=== PATIENT | male | born 1965 | race Caucasian/White ===

== ENCOUNTER 2021-02-19 11:51 | Emergency (ER) | payer BC, SELFPAY ==
[2021-02-19 11:52] VITALS: BP 147/79; PULSE 93; RESP 18; TEMP 36.7; O2SAT 99; BMI 55.2
[2021-02-19 13:00] VITALS: BP 147/79; PULSE 93; RESP 18; TEMP 36.7; O2SAT 99; BMI 55.4
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
[2021-02-19 14:05] VITALS: BP 147/79; PULSE 93; RESP 18; TEMP 36.7; O2SAT 99
== END 2021-02-19 14:20 | disposition home or self-care (01) ==
PROVIDERS: Emergency Provider Nurse Practitioner; PCP Family Medicine
DX: M54.42 Lumbago with sciatica, left side (principal)
CPT/HCPCS: 96372; 99202; G0463

== ENCOUNTER → 2021-03-03 10:59 | Outpatient (CLI) | payer BC, SELFPAY ==
--- NOTE | 2021-03-03 11:03 | XR_ITS ---
PROCEDURE: XR LUMBAR SPINE MIN 4V CLINICAL INDICATION: Dorsalgia, unspecified COMPARISON: No exams were available for comparison FINDINGS: There is normal alignment. No acute fracture or dislocation is evident. Mild degenerative changes are present with small anterior osteophytes at L2, L3, and L4. The disc spaces are well preserved. There is mild sclerosis of the left SI joint. On the AP view of the lumbar spine there are numerous faintly rounded areas of calcification in the right upper quadrant consistent with cholelithiasis.. IMPRESSION: Mild degenerative changes lumbar spine and left SI joint. Cholelithiasis Dictated by: Mario Mcgowan MD 03/03/2021 11:31 Mario Mcgowan MD in [place] 03/03/2021 11:31
== END ==
LOC: RAD 11:01
PROVIDERS: PCP Family Medicine; Visit Provider Family Medicine
DX: M54.9 Dorsalgia, unspecified (principal)
CPT/HCPCS: 72110

== ENCOUNTER → 2022-01-04 11:12 | Outpatient (CLI) | payer OTHER, SELFPAY | LOC: RT 11:16 | PROVIDERS: PCP Family Medicine; Visit Provider Family Medicine | DX: R55 Syncope and collapse (principal); I10 Essential (primary) hypertension | CPT/HCPCS: 93225; 93226 ==

== ENCOUNTER → 2022-01-06 08:02 | Outpatient (CLI) | payer OTHER, SELFPAY ==
--- NOTE | 2022-01-06 | CA_ITS ---
APPROVED REPORT EXAM: Comprehensive 2D, Doppler, and color-flow Echocardiogram Rn Sane: Gabby Berger CRT Ht: 5 ft 10 in Wt: 385lbs BSA: 2.76 BP: 147/79 mmHg Indications: Diabetes, Obesity, Peripheral Edema, Hypertension/HDD 2D Dimensions LVOT 2.01 cm (M/F) 1.5-2.5 LA Volume 65.80 mL LA Volume Index 23.80 mL/m2 (M/F) 16-34 M-Mode Dimensions RVDd 3.34 cm (0.9-2.6) LA Diam 4.15 cm (1.9-4.0) LVDd 5.07 cm (3.5-5.7) Ao Diam 3.94 cm (2.0-3.7) LVDs 3.26 cm (3.5-5.7) IVSd 0.97 cm (0.6-1.1) PWd 1.17 cm (0.6-1.1) EF (Teich) 64.90% FS 35.70% EDV (Teich) 122.10 mL ESV (Teich) 42.80 mL LV Diastology MED E' 16.90 (< 7 cm/sec) MED A' 5.80 cm/s LAT E' 15.00 (<10 cm/sec) LAT A' 4.90 cm/s Aortic Valve AO Peak GR. 15.50 mmHg Pulmonary Valve PV Peak Velocity 112.00 (50-150 cm/s) Tricuspid Valve TR P. Velocity 156.00 cm/s RAP Estimate 10.00 mmHg RVSP 19.70 mmHg Left Ventricle Left atrium is mildly enlarged, left ventricle is normal size, mild concentric left ventricular hypertrophy, estimated ejection fraction 55% with no regional wall motion abnormality, diastolic parameters are within normal range. Right Ventricle Right atrium and right ventricle are normal size and contractility. Aortic Valve Aortic valve is minimally thickened and fibrosed there is no aortic stenosis or aortic insufficiency. Mitral Valve Mitral valve grossly normal, there is trace mitral regurgitation. Tricuspid Valve Tricuspid valve grossly normal, there is trace tricuspid regurgitation, tricuspid regurgitation jet velocity is inadequate for calculation of the right ventricular systolic pressure. Pulmonic Valve Pulmonic valve is poorly visualized. Great Vessels Aortic root is normal size. Inferior vena cava is normal size with normal inspiratory collapse. Pericardium No significant pericardial effusion noted. Conclusion 1. Mildly enlarged left atrium, normal left ventricular size, mild concentric left ventricular hypertrophy, estimated ejection fraction 55% with no regional wall motion abnormality, diastolic parameters are within normal range. 2. Trace mitral and tricuspid regurgitation. 3. No significant pericardial effusion noted. 4. Inferior vena cava is normal size with normal inspiratory collapse. Electronically signed by : Juice Mcgrath MD 01/07/2022 05:39:00
--- NOTE | 2022-01-06 08:52 | US_ITS ---
FINAL REPORT CLINICAL HISTORY: RUQ ABD PAIN FINDINGS: Sonographic images of the right upper quadrant were obtained. The pancreas is partially obscured.The liver is fatty infiltrated. The portal vein is at the upper limits of normal in size at 13 mm. There are gallstones in the gallbladder. There is no evidence of biliary ductal dilatation.The common duct measures 4mm. Limited images of the right kidney are unremarkable. IMPRESSION: Cholelithiasis. Fatty infiltration of the liver. Reviewed, Interpreted and Dictated by Param Fishman III, MD Transcribed by Rene Watters Authenticated and [facility]
== END ==
PROVIDERS: PCP Family Medicine; Visit Provider Family Medicine
DX: R10.11 Right upper quadrant pain (principal); R55 Syncope and collapse; I10 Essential (primary) hypertension
CPT/HCPCS: 76705; 93306

== ENCOUNTER 2023-03-25 10:15 | Observation (INO) | payer OTHER, SELFPAY ==
[2023-03-25] VITALS (15 sets, daily range): BP systolic 102–136; BP diastolic 51–90; PULSE 86–114; RESP 16–20; TEMP 36.7; O2SAT 97–99; BMI 55.7; BMI 53.8
--- NOTE | 2023-03-25 10:30 | CT_ITS ---
FINAL REPORT TECHNIQUE: The patient was injected with IV contrast. Axial images were obtained through the chest in a PE protocol. 3-D reconstruction images were also performed. Individualized dose reduction techniques using automated exposure control or adjustment of the MA and/or KV according to patient's size were employed. CLINICAL HISTORY: dyspnea, unilateral leg swelling FINDINGS: There are multiple small mediastinal lymph nodes. The pulmonary arteries are suboptimally opacified. There are bilateral pulmonary artery filling defects, greater on the left than right. Findings are well seen on images 61-69 of series 5. There are pulmonary artery filling defects in the right lower lobe branch vessels. This is well seen on images 73-81 of series 5. There is no axillary adenopathy. The heart size is normal. There is no pericardial or pleural effusion. Limited images of the upper abdomen mild fatty infiltration of the liver. No suspicious infiltrate or nodule is identified. IMPRESSION: Multiple bilateral acute pulmonary emboli. Reviewed, Interpreted and Dictated by Meliton Lopez MD Transcribed by Rosa Maria Yousif Authenticated and . [facility]
--- NOTE | 2023-03-25 10:30 | CA_ITS ---
FINAL REPORT TECHNIQUE: Right lower extremity venous duplex was performed with augmentation and compression. CLINICAL HISTORY: RLE swelling and pain X SEVERAL DAYS,NKI COMPARISON: None FINDINGS: RIGHT LOWER EXTREMITY VENOUS DOPPLER: There is partial thrombus with limited compressibility identified in the right common femoral vein. There is occluding thrombus is seen in the superficial femoral vein, popliteal vein, and posterior tibial veins. IMPRESSION: Extensive deep venous thrombosis in the right lower extremity, from the calf veins through the superficial femoral vein. There is partial thrombosis with limited compressibility in the right common femoral vein. These results were communicated to Dr. Arias in the emergency room of [facility] by the cytotechnologist/cytology supervisor 03/25/2023. Reviewed, Interpreted and Dictated by Meliton Lopez MD Transcribed by Carmela Leija Authenticated and [facility]
--- NOTE | 2023-03-25 10:32 | ED_ITS ---
Discharge Plan Disposition Patient Disposition: Admitted Chief Complaint: PAIN Prescriptions Prescriptions: No Action metformin 1,000 mg tablet 1,000 mg PO amitriptyline 25 mg tablet 25 mg PO gabapentin 400 mg capsule 400 mg PO meloxicam 7.5 MG tablet 7.5 mg PO BID lisinopril 10 mg tablet 20 mg PO DAILY Referrals Follow up/Referrals: Michael Greer MD [Primary Care Provider] - See instructions Clinical Impressions Clinical Impression: Pulmonary embolism, Right leg swelling, Dyspnea, DVT (deep venous thrombosis), MARYJANE (acute kidney injury) Discharge ED Provider: Vanesa Arias General Adult HPI General Chief complaint: PAIN Stated complaint: right calf pain, cough, flu like symptoms Time Seen by Provider: 03/25/23 10:26 Mode of Arrival: Ambulatory Source of Information: Patient Limitations: No Limitations Description of Symptoms (Recalled from ER Triage Doc. by RN): pt to ed c/o right calf pain x2 days. pt states the pain is better when he is lying down and worse when sitting. pt states a hx of neuropathy and diabetes. pt states taking 81mg of aspirin last night. pedal pulses intact. History of Present Illness HPI narrative: Patient is a morbidly obese 58-year-old male presents today with multiple complaints including right lower extremity pain and swelling as well as shortness of breath and chest wall discomfort. No history of DVT or PE that he is aware of he has had no hemoptysis. Did state he recently recovered from an upper respiratory viral infection within the last week or 2. States that his lower extremity pain and discomfort began over the last 3 days started in his calf and has migrated proximally with associated leg swelling. Subsequently over the last 24 hours he states he has had respiratory symptoms and pain on the right lateral aspect of his chest wall. No fevers or chills he is aware of. Related Data Home Medications Medication Instructions Recorded Confirmed meloxicam 7.5 mg tablet 7.5 mg PO BID Pain 02/19/21 01/26/22 amitriptyline 25 mg tablet 25 mg PO 01/26/22 01/26/22 gabapentin 400 mg capsule 400 mg PO 01/26/22 01/26/22 lisinopril 10 mg tablet 20 mg PO DAILY Hypertension 01/26/22 01/26/22 metformin 1,000 mg tablet 1,000 mg PO 01/26/22 01/26/22 Allergies Allergy/AdvReac Type Severity Reaction Status Date / Time codeine Allergy Verified 01/26/22 09:[address] [facility] Disclaimer: The information contained in this section may have been updated after the patient was seen, as this information can be updated by other users. Social History (Updated 01/26/22 @ 13:51 by Param Gardner MD) Smoking Status: Never smoker alcohol intake: never current occupational status: other Travel in the last 8 weeks: None ROS Obtained: Yes All systems reviewed & no additional complaints except as documented Physical Exam General General appearance: alert Respiratory Respiratory exam: Present normal lung sounds bilaterally; Absent respiratory distress or wheezes Cardiovascular Cardiovascular exam: Present tachycardia (Heart rate 115) Extremities Exam Extremities exam: Present other (Extremities morbidly obese and body habitus limits my ability to assess for unilateral swelling peers to be symmetric on my assessment) Neurological Exam Neurological exam: Present alert and oriented X3 Medical Decision Making Alex Inquiry Pt receiving controlled substance: No Vital Signs: 03/25/23 10:24 03/25/23 10:30 03/25/23 11:08 Temperature 98.0 F Temperature Source Oral Pulse Rate 110 H 90 Pulse Rate [Left Radial] 114 H Respiratory Rate 20 20 18 Blood Pressure 120/73 118/71 Blood Pressure [Right Arm] 134/90 Blood Pressure Mean 88 84 Blood Pressure Mean [Right Arm] 104 02 Sat by Pulse Oximetry 99 99 98 Oxygen Delivery Method Room Air 03/25/23 11:30 03/25/23 12:00 Temperature Temperature Source Pulse Rate 95 H 87 Pulse Rate [Left Radial] Respiratory Rate 20 20 Blood Pressure 118/64 126/64 Blood Pressure [Right Arm] Blood Pressure Mean 71 82 Blood Pressure Mean [Right Arm] 02 Sat by Pulse Oximetry 99 99 Oxygen Delivery Method Lab Data Lab results reviewed: Yes I reviewed the patient's lab results. Lab Results 03/25/23 10:36: SARS-CoV-2 (PCR) Not detected, Influenza A Untype (PCR) Not de tected, Influenza Type B (PCR) Not detected 03/25/23 10:42: WBC 9.4, RBC 5.24, Hgb 16.4, Hct 47.9, MCV 91.4, MCH 31.2, MCHC 34.2, RDW 13.5, Plt Count 208, MPV 9.0, Neut % (Auto) 70.7, Lymph % (Auto) 18.1, [place] % (Auto) 9.3, Eos % (Auto) 1.4, Baso % (Auto) 0.5, Neut # (Auto) 6.6, Lymph # (Auto) 1.7, [place] # (Auto) 0.9, Eos # (Auto) 0.1, Baso # (Auto) 0.1, Sodium 138, Potassium 4.0, Chloride 107, Carbon Dioxide 19 L, Anion Gap 16.0 H, BUN 28 H, Creatinine 2.20 H, Estimated Creat Clear 39, Estimated GFR 31 L, Est GFR ( Amer) 38 L, Glucose 237 H, Calcium 8.5, Phosphorus 2.5, Magnesium 1.9, Total Bilirubin 1.3, AST 34, ALT 35, Alkaline Phosphatase 117, Total Creatine Kinase 212 H, Troponin I < 0.01, NT-Pro-B Natriuret Pep 89.3, Total Protein 7.9, Albumin 4.1, Globulin 3.8 H, Albumin/Globulin Ratio 1.1 03/25/23 10:42 03/25/23 10:42 Orders (Tests/Meds): ED MEDICATIONS Discontinued Medications Generic Name Dose Route Start Last Admin Trade Name Freq PRN Reason Stop Dose Admin Lactated Ringer's 1,000 mls @ 999 mls/hr 03/25/23 10:30 03/25/23 10:59 Lactated Ringer's 1000 Ml Bag IV 03/25/23 11:30 999 mls/hr .Q1H1M DAMASO Administration Iopamidol 75 ml 03/25/23 11:46 03/25/23 11:47 Iopamidol-370 (76%);100ml Bottle IV 03/25/23 11:47 75 ml ONCE ONE Administration Morphine Sulfate 4 mg 03/25/23 10:30 03/25/23 11:01 Morphine 4mg/Ml Syringe IV 03/25/23 10:31 4 mg ONCE ONE Administration Ondansetron HCl 4 mg 03/25/23 10:30 03/25/23 11:00 Ondansetron 4mg/2ml Vial IV 03/25/23 10:31 4 mg ONCE ONE Administration Sodium Chloride 50 ml 03/25/23 11:46 03/25/23 11:46 0.9 % Sodium Chloride 50 Ml Vial IV 03/25/23 11:47 50 ml ONCE ONE Administration Sodium Chloride 10 ml 03/25/23 11:46 03/25/23 11:47 Sodium Chloride 0.9% 10ml Syr (Rad Only) IV 03/25/23 11:47 10 ml ONCE ONE Administration ORDERS Category Date Time Status CT angio chest PE protocol Stat Cat Scan 03/25/23 10:30 Taken BNP [Brain Natriuretic Peptide] Stat Lab 03/25/23 10:42 Completed CBC w/Auto Diff [Complete Blood Count Auto Diff] Stat Lab 03/25/23 10:42 Completed CK [Creatine Kinase] Stat Lab 03/25/23 10:42 Completed CMP [Comprehensive Metabolic Panel] Stat Lab 03/25/23 10:42 Completed Magnesium Stat Lab 03/25/23 10:42 Completed Phosphorous Stat Lab 03/25/23 10:42 Completed Rapid PCR Covid and Flu A/B Stat Lab 03/25/23 10:36 Completed Trop I [Troponin I] Stat Lab 03/25/23 10:42 Completed Troponin I Q3H Lab 03/25/23 13:30 Ordered Troponin I Q3H Lab 03/25/23 16:30 Ordered CA venous doppler LE RT Stat Y 03/25/23 10:30 Completed Medical Decision Narrative: 58-year-old with above history. On highly concerned that he has a DVT and possible concomitant pulmonary embolism therefore we will get a venous duplex of the right lower extremity as well as CT pulmonary angio to evaluate for PE. Other things in the differential could be viral upper respiratory infection and more benign pathology such as myalgias or muscular cramping. Patient is tachycardic we will give IV fluids and some pain medicine I will reassess after his initial workup is complete. Patient's creatinine significantly elevated at 2.2 no labs were available in our system but we were able to obtain labs from Dr. Greer's office and his creatinine was 1.43 resulted on March 04, 2023 therefore this is an acute kidney injury. EKG performed at person interpreted shows a ventricular rate of 89 low voltage QRS this is likely secondary to patient's body habitus there is a positive flexion leads I and aVF normal axis no acute ischemic changes noted no significant right heart strain noted as well no significant conduction abnormalities is nondiagnostic from an emergency standpoint. DVT ultrasound was positive for right lower extremity DVT. CT PE was performed which I personally interpreted which shows multiple bilateral PEs no evidence of right heart strain this is consistent with radiology read as well. Overall patient has a DVT PE acute kidney injury Lovenox was administered he will need to be admitted for further evaluation and treatment. No evidence of submassive PE that would require any further endovascular intervention. Critical Care Critical Care Time Critical Care Time: Yes Attestation: On 03/25/23, the high probability of a clinically significant, sudden or life threatening deterioration of the following system(s) required my full and direct attention, intervention and personal management. The time I documented below is in addition to time spent performing reported procedures but includes the following listed in this critical care notation. Total Time Total Critical Care Time: 35
[2023-03-25 10:43] LABS: Coronavirus 19, PCR Not Detected (NotDetected); Influenza A, PCR Not Detected (NotDetected); Influenza B, PCR Not Detected (NotDetected)
--- NOTE | 2023-03-25 10:50 | PC.NURSE ---
vascular at BS
[2023-03-25] MEDS: LACTATED RINGERS 1000ML 1,000 ML 999 ML IV (10:59)
[2023-03-25] MEDS: ONDANSETRON 4MG/2ML VIAL 4 MG IV (11:00)
[2023-03-25] MEDS: MORPHINE 4MG/ML SYRINGE 4 MG IV (11:01)
[2023-03-25 11:04] LABS: Basophils # 0.1 K/mm3 (0-0.2); Basophils % 0.5 % (0.1-2.0); Eosinophils # 0.1 K/mm3 (0.0-0.4); Eosinophils % 1.4 % (0.1-12.0); Hematocrit 47.9 % (42.0-52.0); Hemoglobin 16.4 g/dL (14.1-18.0); Lymphocytes # 1.7 K/mm3 (0.7-4.5); Lymphocytes % 18.1 % (10-50); Mean Corpuscular HGB Conc 34.2 g/dL (31.8-35.4); Mean Corpuscular Hemoglobin 31.2 pg (27.0-31.2); Mean Corpuscular Volume 91.4 fl (80-94); Monocytes # 0.9 K/mm3 (0.1-1.0); Monocytes % 9.3 % (1.7-9.3); Neutrophils # 6.6 K/mm3 (1.8-7.8); Neutrophils % 70.7 % (37.0-80.0); Platelet Count 208 K/mm3 (142-424); Red Blood Count 5.24 M/mm3 (4.60-6.20); Red Cell Distribution Width 13.5 % (11.5-17.5); White Blood Count 9.4 K/mm3 (4.8-10.8)
[2023-03-25 11:08] LABS: Chloride 107 mmol/L (98-107); Sodium 138 mmol/L (136-145)
[2023-03-25 11:10] LABS: Alanine Aminotransferase 35 U/L (12-78); Aspartate Amino Transferase 34 U/L (17-59); Bilirubin,Total 1.3 mg/dl (0.2-1.3); Blood Urea Nitrogen 28 mg/dl (9-20); Creatinine Clearance Estimated 39 mL/min (50-200); Estimated Glomerular Filt Rate 31 ml/min (>60); GFR (African American) 38 ML/MIN (>60); Magnesium 1.9 mg/dl (1.6-2.3); Phosphorous 2.5 mg/dl (2.5-4.5)
[2023-03-25 11:11] LABS: Albumin Level 4.1 g/dl (3.5-5.0); Albumin/Globulin Ratio 1.1 (1.1-1.8); Alkaline Phosphatase 117 U/L (38-126); Calcium 8.5 mg/dl (8.4-10.2); Carbon Dioxide 19 mmol/L (22.0-30.0); Creatine Kinase 212 U/L (55-170); Globulin 3.8 g/dL (1.3-3.2); Glucose 237 mg/dl (74-100); Total Protein,Serum 7.9 g/dl (6.3-8.2)
[2023-03-25 11:20] LABS: NT Pro Brain Natriuretic Pep. 89.3 pg/mL (0-125)
--- NOTE | 2023-03-25 11:22 | ECG_ITS ---
APPROVED REPORT Exam: Resting ECG HR:89 bpm ECG Measurements Heart Rate 89 AXES ID 239 P 34 QRSd 77 QRS 3 QT 348 T 18 QTc 394 Conclusion SINUS RHYTHM WITH FIRST DEGREE AV BLOCK LOW QRS VOLTAGE IN PRECORDIAL LEADS [QRS DEFLECTION < 1.0 mV IN CHEST LEADS] POSSIBLE ANTERIOR MYOCARDIAL INFARCTION , PROBABLY OLD [30 ms Q WAVE IN V3/V4, OR R < 0.2 mV IN V4] POSSIBLE INFERIOR MYOCARDIAL INFARCTION , PROBABLY OLD [30 ms Q WAVE IN II/aVF] ABNORMAL ECG UNCONFIRMED REPORT Electronically signed by : Zackery Torres MD 03/25/2023 17:59:08
[2023-03-25 11:24] LABS: Troponin I < 0.01 ng/ml (0.00-0.034)
--- NOTE | 2023-03-25 11:33 | PC.NURSE ---
Pt gone to RAD via stretcher
[2023-03-25] MEDS: 0.9 % SODIUM CHLORIDE 50 ML VIAL IV (11:46)
[2023-03-25] MEDS: SODIUM CHLORIDE 0.9% 10ML SYR (RAD ONLY) 10 ML IV (11:47)
[2023-03-25] MEDS: IOPAMIDOL-370 (76%);100ML BOTTLE 75 ML IV (11:47)
--- NOTE | 2023-03-25 12:33 | PC.NURSE ---
Dr. Arias speaking with Dr. Greenwood about possible admission
--- NOTE | 2023-03-25 12:38 | PC.NURSE ---
Juliane in Care Management notified of admission to Dr. Greenwood for Dr. Greer for MARYJANE, RLE DVT, multiple PE's.
[2023-03-25] MEDS: ENOXAPARIN 100MG/ML SYRINGE 180 MG SQ ×2 (12:40→23:59)
--- NOTE | 2023-03-25 13:23 | HMH.PHAINT1 ---
Pharmacy Intervention Comments: MEDICATION RECONCILIATION COMPLETE USING LIST FROM DR WISE'S OFFICE AND EXTERNAL PHARMACY FILL HISTORY.
--- NOTE | 2023-03-25 13:25 | PC.NURSE ---
Attempted to call report, Elke Jacobsen RN will call back shortly to receive report.
--- NOTE | 2023-03-25 13:41 | PC.NURSE ---
Gave report to Elke Jacobsen RN on Med/Surg
[2023-03-25] MEDS: 0.9 % SODIUM CHLORIDE 1000ML 1,000 ML 125 ML IV ×2 (14:59→22:42)
[2023-03-25 15:39] LABS: Troponin I < 0.01 ng/ml (0.00-0.034)
[2023-03-25 17:11] LABS: Troponin I < 0.01 ng/ml (0.00-0.034)
--- NOTE | 2023-03-25 17:16 | P.HP_ITS ---
History of Present Illness *Admission Date: 03/25/23 *Reason for visit:: Right leg pain *History of present illness: Mr. Diaz is a 57 year old patient of [facility] who is followed by Dr. Greer for his primary care. He presented to the [facility] ER today complaining of progressively worse right leg pain for the past few days. The pain started in his calf then radiated to his ankle and today up to his thigh. He reports no similar previous episodes. He states he got sick with an upper respiratory infection last week and has not been very mobile. [facility] Disclaimer: The information contained in this section may have been updated after the patient was seen, as this information can be updated by other users. Medical History (Updated 03/25/23 @ 17:24 by Artur Greenwood MD) Diabetes mellitus, type 2 Gastroparesis GERD (gastroesophageal reflux disease) Hypertension Morbid obesity Neuropathy Surgical History (Updated 03/25/23 @ 15:11 by Ebony Quiñonez, KATHY) History of cholecystectomy Family History (Updated 03/25/23 @ 15:13 by Ebony Quiñonez RN) Family history of diabetes mellitus type II Social History (Updated 03/25/23 @ 15:14 by Ebony Quiñonez RN) Smoking Status: Never smoker alcohol intake: never current occupational status: other Travel in the last 8 weeks: None Review of Systems Constitutional Constitutional: Denies chills and Denies fever(s) Eyes Eyes: Denies blurry vision ENT Ears, Nose, Mouth, and Throat: Denies dizziness and Denies epistaxis *Cardiovascular Cardiovascular: Denies chest pain and Reports dyspnea *Respiratory Respiratory: Reports dyspnea *Gastrointestinal Gastrointestinal: Denies abdominal pain *Genitourinary Genitourinary: Denies hematuria *Musculoskeletal Musculoskeletal: Denies myalgias *Neurologic Neurologic: Denies dizziness Meds Home Medications and Allergies Home Medications Medication Instructions Recorded Confirmed Type amitriptyline 25 mg tablet 25 mg PO HS MOOD 01/26/22 03/25/23 History gabapentin 400 mg capsule 400 mg PO BID Pain 01/26/22 03/25/23 History lisinopril 10 mg tablet 20 mg PO DAILY Hypertension 01/26/22 03/25/23 History metformin 1,000 mg tablet 1,000 mg PO BIDWMEAL Diabetes 01/26/22 03/25/23 History chlorthalidone 25 mg tablet 12.5 mg PO DAILY Fluid 03/25/23 03/25/23 History dulaglutide 1.5 mg/0.5 mL 1.5 mg SQ WEEKLY Diabetes 03/25/23 03/25/23 History [facility] meloxicam 15 mg tablet 15 mg PO DAILY Pain 03/25/23 03/25/23 History omeprazole 20 mg tablet,delayed 20 mg PO DAILY Acid Reflux 03/25/23 03/25/23 History release New Prescriptions to Start Prescriptions: Allergies Allergy/AdvReac Type Severity Reaction Status Date / Time codeine Allergy Verified 03/25/23 15:00 Exam Data for Last 24 hours Vital signs and Labs for Last 24 Hours: Temp Pulse Resp BP Pulse Ox O2 Del Method 98.0 F 88 20 104/66 L 98 Room Air 03/25/23 14:53 03/25/23 14:53 03/25/23 14:53 03/25/23 14:53 03/25/23 14:53 03/25/23 15:00 Laboratory Results - last 24 hr 03/25/23 10:36: SARS-CoV-2 (PCR) Not detected, Influenza A Untype (PCR) Not de tected, Influenza Type B (PCR) Not detected 03/25/23 10:42: WBC 9.4, RBC 5.24, Hgb 16.4, Hct 47.9, MCV 91.4, MCH 31.2, MCHC 34.2, RDW 13.5, Plt Count 208, MPV 9.0, Neut % (Auto) 70.7, Lymph % (Auto) 18.1, [place] % (Auto) 9.3, Eos % (Auto) 1.4, Baso % (Auto) 0.5, Neut # (Auto) 6.6, Lymph # (Auto) 1.7, [place] # (Auto) 0.9, Eos # (Auto) 0.1, Baso # (Auto) 0.1, Sodium 138, Potassium 4.0, Chloride 107, Carbon Dioxide 19 L, Anion Gap 16.0 H, BUN 28 H, Creatinine 2.20 H, Estimated Creat Clear 39, Estimated GFR 31 L, Est GFR ( Amer) 38 L, Glucose 237 H, Calcium 8.5, Phosphorus 2.5, Magnesium 1.9, Total Bilirubin 1.3, AST 34, ALT 35, Alkaline Phosphatase 117, Total Creatine Kinase 212 H, Troponin I < 0.01, NT-Pro-B Natriuret Pep 89.3, Total Protein 7.9, Albumin 4.1, Globulin 3.8 H, Albumin/Globulin Ratio 1.1 03/25/23 14:32: Troponin I < 0.01 03/25/23 16:25: Troponin I < 0.01 I & O for Last 24 hours: Intake & Output 03/22/23 03/23/23 03/24/23 03/25/23 23:59 23:59 23:59 23:59 Weight 386 lb 5 oz Constitutional Constitutional: no acute distress Comments: BMI 53.9 *Routine HEENT Exam Head: Present normocephalic Eye: Present EOMI and PERRL ENT: Present mucous membranes moist *Routine Neck Exam Neck: Present supple; Absent lymphadenopathy *Routine Respiratory Exam Respiratory: Present CTA bilaterally *Routine Cardiovascular Exam Cardiovascular: Present RRR *Routine Abdominal Exam Abdominal: Present soft and normoactive bowel sounds; Absent tenderness *Routine Rectal Exam Rectal:: deferred *Routine Genitalia Exam Genitalia:: deferred *Routine Extremities Exam Extremities: Present edema (right leg); Absent cyanosis or clubbing *Routine Skin Exam Skin: Present warm; Absent rash *Routine Neurological Exam Neurological: Present alert and oriented X3 Assessment and Plan *Assessment and plan (1) Pulmonary embolism: Status: Acute Qualifiers: Pulmonary embolism type: multiple subsegmental (without acute cor pulmonale) Qualified Code(s): I26.94 - Multiple subsegmental pulmonary emboli without acute cor pulmonale Category: Medical Code(s): I26.99 - Other pulmonary embolism without acute cor pulmonale (2) DVT (deep venous thrombosis): Status: Acute Qualifiers: DVT location: lower extremity Affected thrombotic vein of extremity: unspecified vein of extremity Chronicity: acute Laterality: right Qualified Code(s): I82.401 - Acute embolism and thrombosis of unspecified deep veins of right lower extremity Category: Medical Code(s): I82.409 - Acute embolism and thrombosis of unspecified deep veins of unspecified lower extremity (3) MARYJANE (acute kidney injury): Status: Acute Category: Medical Code(s): N17.9 - Acute kidney failure, unspecified (4) Right leg swelling: Status: Acute Category: Medical Code(s): M79.89 - Other specified soft tissue disorders (5) Dyspnea: Status: Acute Qualifiers: Dyspnea type: unspecified Qualified Code(s): R06.00 - Dyspnea, unspecified Category: Medical Code(s): R06.00 - Dyspnea, unspecified (6) Morbid obesity: Status: Acute Category: Medical Code(s): E66.01 - Morbid (severe) obesity due to excess calories (7) GERD (gastroesophageal reflux disease): Status: Acute Qualifiers: Esophagitis presence: esophagitis presence not specified Qualified Code(s): K21.9 - Gastro-esophageal reflux disease without esophagitis Category: Medical Code(s): K21.9 - Gastro-esophageal reflux disease without esophagitis Plan Patient admitted for further evaluation and management of his MARYJANE and pulmonary emboli. IVF's and Lovenox were started.
[2023-03-25 20:19] LABS: POC Glucose,Bedside 236 (70-110)
[2023-03-25] MEDS: PANTOPRAZOLE 40MG TABLET 40 MG PO (20:49)
[2023-03-25] MEDS: humaLOG 100 UNITS/ML 3ML VIAL (SSI) SQ (20:49)
[2023-03-25] MEDS: AMITRIPTYLINE 25MG TABLET 25 MG PO (20:49)
[2023-03-25] MEDS: GABAPENTIN 400MG CAPSULE 400 MG PO (20:49)
[2023-03-25] MEDS: ACETAMINOPHEN 500MG TAB 1000 MG PO (20:54)
[2023-03-26] VITALS (10 sets, daily range): BP systolic 97–147; BP diastolic 60–80; PULSE 84–108; RESP 16–20; TEMP 36.6–37; O2SAT 96–98; BMI 54.1
[2023-03-26] MEDS: ONDANSETRON 4MG/2ML VIAL 4 MG IV (00:01)
--- NOTE | 2023-03-26 02:44 | PC.NURSE ---
Placed patient on 2L NC due to o2 sats 88% while sleeping.
[2023-03-26 05:34] LABS: POC Glucose,Bedside 125 (70-110)
[2023-03-26 07:36] LABS: Basophils % 0.6 % (0.1-2.0); Eosinophils # 0.2 K/mm3 (0.0-0.4); Eosinophils % 2.2 % (0.1-12.0); Hematocrit 43.5 % (42.0-52.0); Lymphocytes # 1.7 K/mm3 (0.7-4.5); Lymphocytes % 24.9 % (10-50); Mean Corpuscular HGB Conc 32.8 g/dL (31.8-35.4); Mean Corpuscular Hemoglobin 30.1 pg (27.0-31.2); Mean Corpuscular Volume 91.9 fl (80-94); Mean Platelet Volume 9.3 fl (7.4-10.4); Monocytes # 0.6 K/mm3 (0.1-1.0); Monocytes % 9.7 % (1.7-9.3); Neutrophils # 4.2 K/mm3 (1.8-7.8); Neutrophils % 62.6 % (37.0-80.0); Platelet Count 173 K/mm3 (142-424); Red Blood Count 4.73 M/mm3 (4.60-6.20); Red Cell Distribution Width 13.5 % (11.5-17.5); White Blood Count 6.6 K/mm3 (4.8-10.8)
[2023-03-26 07:48] LABS: Chloride 108 mmol/L (98-107); Sodium 138 mmol/L (136-145)
[2023-03-26 07:49] LABS: Potassium 4.1 mmoL/L (3.5-5.1)
[2023-03-26 07:51] LABS: Blood Urea Nitrogen 29 mg/dl (9-20)
[2023-03-26 07:52] LABS: Anion Gap 12.1 mEq/L (5-15); Calcium 7.7 mg/dl (8.4-10.2); Carbon Dioxide 22 mmol/L (22.0-30.0); Creatinine Clearance Estimated 40 mL/min (50-200); Estimated Glomerular Filt Rate 33 ml/min (>60); GFR (African American) 40 ML/MIN (>60); Glucose 142 mg/dl (74-100)
[2023-03-26] MEDS: 0.9 % SODIUM CHLORIDE 1000ML 1,000 ML 125 ML IV ×2 (08:19→16:42)
[2023-03-26] MEDS: GABAPENTIN 400MG CAPSULE 400 MG PO ×2 (08:20→21:39)
[2023-03-26] MEDS: ENOXAPARIN 100MG/ML SYRINGE 180 MG SQ (08:20)
--- NOTE | 2023-03-26 08:20 | EXP.ACUTE.PN ---
Subjective *Date: 03/26/23 *Time: 08:20 Interval history: Patient with no new complaints, urine is still dark in color. Medical Exam Vital signs and Labs for Last 24 Hours: Vital Signs Temp Pulse Pulse Resp BP BP Pulse Ox 03/26/23 07:31 98.1 F 93 H 19 147/80 H 97 03/26/23 06:32 03/26/23 04:00 84 03/26/23 05:00 03/26/23 04:00 98.2 F 87 16 129/75 98 03/26/23 03:00 03/26/23 02:00 127/77 03/26/23 01:00 03/26/23 00:00 108 H 03/26/23 00:00 97.8 F 95 H 16 97/60 L 96 03/25/23 23:00 03/25/23 21:00 03/25/23 20:00 102 H 03/25/23 20:00 98.1 F 98 H 16 136/75 97 03/25/23 18:28 03/25/23 17:00 03/25/23 15:00 03/25/23 14:53 98.0 F 88 20 104/66 L 98 03/25/23 14:23 98.0 F 87 20 109/66 L 03/25/23 13:46 89 102/51 L 97 03/25/23 13:31 87 112/67 97 03/25/23 13:15 88 133/73 98 03/25/23 13:00 87 115/67 99 03/25/23 12:45 86 131/74 98 03/25/23 12:30 87 122/64 97 03/25/23 12:15 86 124/70 97 03/25/23 12:00 87 20 126/64 99 03/25/23 11:30 95 H 20 118/64 99 03/25/23 11:08 90 18 118/71 98 03/25/23 10:30 110 H 20 120/73 99 03/25/23 10:24 98.0 F 114 H 20 134/90 99 O2 Del Method O2 Flow Rate 03/26/23 07:31 Room Air 03/26/23 06:32 Room Air 03/26/23 04:00 03/26/23 05:00 Room Air 03/26/23 04:00 Room Air 03/26/23 03:00 Nasal Cannula 2 03/26/23 02:00 03/26/23 01:00 Room Air 03/26/23 00:00 03/26/23 00:00 Room Air 03/25/23 23:00 Room Air 03/25/23 21:00 Room Air 03/25/23 20:00 03/25/23 20:00 Room Air 03/25/23 18:28 Room Air 03/25/23 17:00 Room Air 03/25/23 15:00 Room Air 03/25/23 14:53 Room Air 03/25/23 14:23 Room Air 03/25/23 13:46 03/25/23 13:31 03/25/23 13:15 03/25/23 13:00 03/25/23 12:45 03/25/23 12:30 03/25/23 12:15 03/25/23 12:00 03/25/23 11:30 03/25/23 11:08 03/25/23 10:30 03/25/23 10:24 Room Air Intake and Output 03/25/23 03/26/23 03/26/23 23:59 07:59 15:59 Intake Total 480 / 480 1945 / 1945 Output Total 0 / 0 Balance 480 / 480 1945 / 1945 Intake: Intake, Oral Amount 480 / 480 470 / 470 Intake, Total IV Amount 1475 / 1475 0.9 % Sodium Chloride 1000ML 1, 1475 / 1475 000 ml @ 125 mls/hr IV .Q8H [facility] Rx#:[id number] Output: Output, Urine Amount 0 / 0 Other: Number of Unmeasured Voids 1 Weight 386 lb 5.056 oz Patient Weight 03/26/23 23:59 Weight 386 lb 5.056 oz Laboratory Results - last 24 hr 03/25/23 10:36: SARS-CoV-2 (PCR) Not detected, Influenza A Untype (PCR) Not detected, Influenza Type B (PCR) Not detected 03/25/23 10:42: WBC 9.4, RBC 5.24, Hgb 16.4, Hct 47.9, MCV 91.4, MCH 31.2, MCHC 34.2, RDW 13.5, Plt Count 208, MPV 9.0, Neut % (Auto) 70.7, Lymph % (Auto) 18.1, [place] % (Auto) 9.3, Eos % (Auto) 1.4, Baso % (Auto) 0.5, Neut # (Auto) 6.6, Lymph # (Auto) 1.7, [place] # (Auto) 0.9, Eos # (Auto) 0.1, Baso # (Auto) 0.1, Sodium 138, Potassium 4.0, Chloride 107, Carbon Dioxide 19 L, Anion Gap 16.0 H, BUN 28 H, Creatinine 2.20 H, Estimated Creat Clear 39, Estimated GFR 31 L, Est GFR ( Amer) 38 L, Glucose 237 H, Calcium 8.5, Phosphorus 2.5, Magnesium 1.9, Total Bilirubin 1.3, AST 34, ALT 35, Alkaline Phosphatase 117, Total Creatine Kinase 212 H, Troponin I < 0.01, NT-Pro-B Natriuret Pep 89.3, Total Protein 7.9, Albumin 4.1, Globulin 3.8 H, Albumin/Globulin Ratio 1.1 03/25/23 14:32: Troponin I < 0.01 03/25/23 16:25: Troponin I < 0.01 03/25/23 20:02: POC Glucose 236 H 03/26/23 05:08: POC Glucose 125 H 03/26/23 06:20: WBC 6.6 D, RBC 4.73, Hct 43.5, MCV 91.9, MCH 30.1, MCHC 32.8, RDW 13.5, Plt Count 173, MPV 9.3, Neut % (Auto) 62.6, Lymph % (Auto) 24.9, [place] % (Auto) 9.7 H, Eos % (Auto) 2.2, Baso % (Auto) 0.6, Neut # (Auto) 4.2, Lymph # (Auto) 1.7, [place] # (Auto) 0.6, Eos # (Auto) 0.2, Baso # (Auto) 0.0, Sodium 138, Potassium 4.1, Chloride 108 H, Carbon Dioxide 22, Anion Gap 12.1, BUN 29 H, Creatinine 2.10 H, Estimated Creat Clear 40, Estimated GFR 33 L, Est GFR ( Amer) 40 L, Glucose 142 H D, Calcium 7.7 L I & O for Labs for Last 24 Hours: Intake & Output 03/23/23 03/24/23 03/25/23 03/26/23 23:59 23:59 23:59 23:59 Intake Total 480 / 480 1944 Output Total 0 / 0 Balance 480 / 480 1944 Weight 386 lb 5 oz 386 lb 5.056 oz Constitutional: Present no acute distress Respiratory: Present normal respiratory effort Cardiac: Present Reg Rate and Rhythm GI: Present normal bowel sounds; Absent tenderness Extremities: Present normal inspection and full ROM Skin: Present intact; Absent erythema Neuro: Present Grossly Intact and moves all extremities Assessment and Plan *Assessment and plan (1) Pulmonary embolism: Status: Acute Qualifiers: Pulmonary embolism type: multiple subsegmental (without acute cor pulmonale) Qualified Code(s): I26.94 - Multiple subsegmental pulmonary emboli without acute cor pulmonale Category: Medical Code(s): I26.99 - Other pulmonary embolism without acute cor pulmonale (2) DVT (deep venous thrombosis): Status: Acute Qualifiers: Affected thrombotic vein of extremity: unspecified vein of extremity Chronicity: acute DVT location: lower extremity Laterality: right Qualified Code(s): I82.401 - Acute embolism and thrombosis of unspecified deep veins of right lower extremity Category: Medical Code(s): I82.409 - Acute embolism and thrombosis of unspecified deep veins of unspecified lower extremity (3) MARYJANE (acute kidney injury): Status: Acute Category: Medical Code(s): N17.9 - Acute kidney failure, unspecified (4) Right leg swelling: Status: Acute Category: Medical Code(s): M79.89 - Other specified soft tissue disorders (5) Dyspnea: Status: Acute Qualifiers: Dyspnea type: unspecified Qualified Code(s): R06.00 - Dyspnea, unspecified Category: Medical Code(s): R06.00 - Dyspnea, unspecified (6) Morbid obesity: Status: Acute Category: Medical Code(s): E66.01 - Morbid (severe) obesity due to excess calories (7) GERD (gastroesophageal reflux disease): Status: Acute Qualifiers: Esophagitis presence: esophagitis presence not specified Qualified Code(s): K21.9 - Gastro-esophageal reflux disease without esophagitis Category: Medical Code(s): K21.9 - Gastro-esophageal reflux disease without esophagitis Plan Plan to continue IVF's as creatinine has improved only minimally.
[2023-03-26 08:35] LABS: Hemoglobin 14.2 g/dL (14.1-18.0)
[2023-03-26] MEDS: humaLOG 100 UNITS/ML 3ML VIAL (SSI) SQ ×3 (11:24→21:40)
[2023-03-26 11:46] LABS: POC Glucose,Bedside 196 (70-110)
[2023-03-26] MEDS: ACETAMINOPHEN 500MG TAB 1000 MG PO (16:42)
--- NOTE | 2023-03-26 18:16 | PC.NURSE ---
pt has done well this shift. expiratory rhonchi on initial assessment. pt doing well on ra only needing 2l supplemental o2 while sleeping when sats drop to mid 80s. pt c/o pain to BLE treated with relief per mar. at bs, pt in shower. no needs at this time.
[2023-03-26 18:19] LABS: POC Glucose,Bedside 177 (70-110)
[2023-03-26 20:24] LABS: POC Glucose,Bedside 193 (70-110)
[2023-03-26] MEDS: AMITRIPTYLINE 25MG TABLET 25 MG PO (21:39)
[2023-03-26] MEDS: PANTOPRAZOLE 40MG TABLET 40 MG PO (21:39)
[2023-03-26] MEDS: ENOXAPARIN 100MG/ML SYRINGE 175 MG SQ (21:39)
[2023-03-27] VITALS: BP 120/64; PULSE 100; PULSE 84; RESP 17; TEMP 37; O2SAT 97
[2023-03-27] MEDS: 0.9 % SODIUM CHLORIDE 1000ML 1,000 ML 125 ML IV (01:24)
[2023-03-27 04:00] VITALS: BP 142/72; PULSE 100; PULSE 97; RESP 17; TEMP 37.1; O2SAT 99; BMI 54.1
[2023-03-27] MEDS: ACETAMINOPHEN 500MG TAB 1000 MG PO (05:07)
[2023-03-27] MEDS: ONDANSETRON 4MG/2ML VIAL 4 MG IV (05:08)
[2023-03-27 05:27] LABS: POC Glucose,Bedside 148 (70-110)
--- NOTE | 2023-03-27 05:43 | PC.NURSE ---
Addendum entered by Piedad Winter RN 03/27/23 05:46: When the patient is laying back in bed the coughing stops. The patient remains AxO and on RA. Patient does state that his urine is still dark but not as dark as yesterday. No other issues have come about family is still at bedside. Original Note: Patient has had a decent night this shift. Has been able to rest. Patient states that he believes his Right leg is more swollen today. With my examination it does not look any more swollen than it did earlier in my shift during my initial assessment. The patient does have a strong cough when he is up and mobek
[2023-03-27 07:22] VITALS: BP 143/79; PULSE 101; RESP 19; TEMP 38; O2SAT 99
--- NOTE | 2023-03-27 07:41 | EXP.ACUTE.PN ---
Subjective *Date: 03/27/23 *Time: 07:41 Interval history: Patient feels better, anxious to go home. Medical Exam Vital signs and Labs for Last 24 Hours: Vital Signs Temp Pulse Pulse Resp BP Pulse Ox O2 Del Method 03/27/23 07:22 100.4 F H 101 H 19 143/79 H 99 Room Air 03/27/23 05:00 Room Air 03/27/23 06:50 Room Air 03/27/23 04:00 100 H 03/27/23 00:00 100 H 03/27/23 04:00 98.7 F 97 H 17 142/72 H 99 Room Air 03/27/23 03:00 Room Air 03/27/23 01:00 Room Air 03/27/23 00:00 98.6 F 84 17 120/64 97 Room Air 03/26/23 20:00 100 H 03/26/23 23:00 Room Air 03/26/23 21:00 Room Air 03/26/23 20:00 Room Air 03/26/23 20:00 98.6 F 96 H 16 122/66 97 Room Air 03/26/23 18:02 Room Air 03/26/23 17:00 Room Air 03/26/23 16:00 90 03/26/23 15:00 Room Air 03/26/23 15:06 98.3 F 98 H 20 128/66 97 Nasal Cannula 03/26/23 12:00 90 03/26/23 13:00 Room Air 03/26/23 11:00 Room Air 03/26/23 11:16 98.2 F 91 H 18 141/77 H 96 Room Air 03/26/23 09:00 Room Air 03/26/23 08:00 Room Air 03/26/23 08:00 95 H O2 Flow Rate 03/27/23 07:22 03/27/23 05:00 03/27/23 06:50 03/27/23 04:00 03/27/23 00:00 03/27/23 04:00 03/27/23 03:00 03/27/23 01:00 03/27/23 00:00 03/26/23 20:00 03/26/23 23:00 03/26/23 21:00 03/26/23 20:00 03/26/23 20:00 03/26/23 18:02 03/26/23 17:00 03/26/23 16:00 03/26/23 15:00 03/26/23 15:06 2 03/26/23 12:00 03/26/23 13:00 03/26/23 11:00 03/26/23 11:16 03/26/23 09:00 03/26/23 08:00 03/26/23 08:00 Intake and Output 03/26/23 03/26/23 03/27/23 15:59 23:59 07:59 Intake Total 470 / 2985 470 / 2985 570 / 570 Output Total 0 / 0 0 / 0 Balance 470 / 2985 470 / 2985 570 / 570 Intake: Intake, Oral Amount 470 / 1510 470 / 1510 570 / 570 Output: Output, Urine Amount 0 / 0 0 / 0 Other: Number of Unmeasured Voids 1 1 Number of Bowel Movements 1 1 Weight 386 lb 4.703 oz Patient Weight 03/27/23 23:59 Weight 386 lb 4.703 oz Laboratory Results - last 24 hr 03/26/23 06:20: WBC 6.6 D, RBC 4.73, Hgb 14.2 D, Hct 43.5, MCV 91.9, MCH 30.1, MCHC 32.8, RDW 13.5, Plt Count 173, MPV 9.3, Neut % (Auto) 62.6, Lymph % (Auto) 24.9, [place] % (Auto) 9.7 H, Eos % (Auto) 2.2, Baso % (Auto) 0.6, Neut # (Auto) 4.2, Lymph # (Auto) 1.7, [place] # (Auto) 0.6, Eos # (Auto) 0.2, Baso # (Auto) 0.0, Sodium 138, Potassium 4.1, Chloride 108 H, Carbon Dioxide 22, Anion Gap 12.1, BUN 29 H, Creatinine 2.10 H, Estimated Creat Clear 40, Estimated GFR 33 L, Est GFR ( Amer) 40 L, Glucose 142 H D, Calcium 7.7 L 03/26/23 11:15: POC Glucose 196 H 03/26/23 16:28: POC Glucose 177 H 03/26/23 20:13: POC Glucose 193 H 03/27/23 05:14: POC Glucose 148 H I & O for Labs for Last 24 Hours: Intake & Output 03/24/23 03/25/23 03/26/23 03/27/23 23:59 23:59 23:59 23:59 Intake Total 480 / 480 2885 / 2985 570 / 570 Output Total 0 / 0 0 / 0 Balance 480 / 480 2885 / 2985 570 / 570 Weight 386 lb 5 oz 386 lb 5.056 oz 386 lb 4.703 oz Constitutional: Present no acute distress Respiratory: Present normal respiratory effort Cardiac: Present Reg Rate and Rhythm GI: Present normal bowel sounds; Absent tenderness Extremities: Present normal inspection, full ROM and edema (right leg) Skin: Present intact; Absent erythema Neuro: Present Grossly Intact and moves all extremities Assessment and Plan *Assessment and plan (1) Pulmonary embolism: Status: Acute Qualifiers: Pulmonary embolism type: multiple subsegmental (without acute cor pulmonale) Qualified Code(s): I26.94 - Multiple subsegmental pulmonary emboli without acute cor pulmonale Category: Medical Code(s): I26.99 - Other pulmonary embolism without acute cor pulmonale (2) DVT (deep venous thrombosis): Status: Acute Qualifiers: Affected thrombotic vein of extremity: unspecified vein of extremity Chronicity: acute DVT location: lower extremity Laterality: right Qualified Code(s): I82.401 - Acute embolism and thrombosis of unspecified deep veins of right lower extremity Category: Medical Code(s): I82.409 - Acute embolism and thrombosis of unspecified deep veins of unspecified lower extremity (3) MARYJANE (acute kidney injury): Status: Acute Category: Medical Code(s): N17.9 - Acute kidney failure, unspecified (4) Right leg swelling: Status: Acute Category: Medical Code(s): M79.89 - Other specified soft tissue disorders (5) Dyspnea: Status: Acute Qualifiers: Dyspnea type: unspecified Qualified Code(s): R06.00 - Dyspnea, unspecified Category: Medical Code(s): R06.00 - Dyspnea, unspecified (6) Morbid obesity: Status: Acute Category: Medical Code(s): E66.01 - Morbid (severe) obesity due to excess calories (7) GERD (gastroesophageal reflux disease): Status: Acute Qualifiers: Esophagitis presence: esophagitis presence not specified Qualified Code(s): K21.9 - Gastro-esophageal reflux disease without esophagitis Category: Medical Code(s): K21.9 - Gastro-esophageal reflux disease without esophagitis Plan Awaiting labs, probable discharge later today.
[2023-03-27 07:59] LABS: Basophils % 0.6 % (0.1-2.0); Eosinophils # 0.2 K/mm3 (0.0-0.4); Eosinophils % 2.2 % (0.1-12.0); Hematocrit 43.7 % (42.0-52.0); Hemoglobin 14.7 g/dL (14.1-18.0); Lymphocytes # 1.5 K/mm3 (0.7-4.5); Lymphocytes % 21.4 % (10-50); Mean Corpuscular HGB Conc 33.6 g/dL (31.8-35.4); Mean Corpuscular Hemoglobin 30.6 pg (27.0-31.2); Mean Corpuscular Volume 90.8 fl (80-94); Mean Platelet Volume 8.6 fl (7.4-10.4); Monocytes # 0.6 K/mm3 (0.1-1.0); Monocytes % 7.7 % (1.7-9.3); Neutrophils # 4.9 K/mm3 (1.8-7.8); Neutrophils % 68.2 % (37.0-80.0); Platelet Count 193 K/mm3 (142-424); Red Blood Count 4.81 M/mm3 (4.60-6.20); Red Cell Distribution Width 13.4 % (11.5-17.5); White Blood Count 7.2 K/mm3 (4.8-10.8)
[2023-03-27 08:00] VITALS: PULSE 100
[2023-03-27 08:06] LABS: Blood Urea Nitrogen 23 mg/dl (9-20); Carbon Dioxide 20 mmol/L (22.0-30.0); Chloride 110 mmol/L (98-107); Creatinine Clearance Estimated 56 mL/min (50-200); Estimated Glomerular Filt Rate 48 ml/min (>60); GFR (African American) 58 ML/MIN (>60)
[2023-03-27 08:19] LABS: Calcium 7.8 mg/dl (8.4-10.2); Glucose 184 mg/dl (74-100); Potassium 4.3 mmoL/L (3.5-5.1)
[2023-03-27 08:22] LABS: Anion Gap 10.3 mEq/L (5-15); Sodium 136 mmol/L (136-145)
[2023-03-27] MEDS: GABAPENTIN 400MG CAPSULE 400 MG PO (08:38)
[2023-03-27] MEDS: ENOXAPARIN 100MG/ML SYRINGE 175 MG SQ (08:39)
--- NOTE | 2023-03-29 13:35 | SW/DCPLANNER ---
Follow up phone call w/ this patient: patient's stated that he is doing well at home and does not have any needs/questions at this time.
--- NOTE | 2023-03-31 08:25 | P.DS_ITS ---
General Admission date:: 03/25/23 Discharge date: 03/27/23 HPI HPI HPI: Mr. Diaz is a 57 [address] [facility] who is followed by Dr. Greer for his primary care. He presented to the [facility] ER today complaining of progressively worse right leg pain for the past few days. The pain started in his calf then radiated to his ankle and today up to his thigh. He reports no similar previous episodes. He states he got sick with an upper respiratory infection last week and has not been very mobile. Hospital Course Hospital Course Hospital Course: The patient was admitted for management of acute kidney injury and pulmonary emboli. His chest CTA showed multiple bilateral acute pulmonary emboli and his venous Doppler showed extensive deep vein thrombosis in the right lower extremity. He was started on IV fluids and Lovenox. His creatinine initially only improved minimally. His IV fluids were continued. By 03/27/2023, he was feeling better and was anxious to go home. Creatinine did improve to 1.5 and it was felt he was stable to be discharged home with close outpatient follow-up. Exam Data for Last 24 hours Vital signs and Labs for Last 24 Hours: Temp Pulse Resp BP Pulse Ox O2 Del Method O2 Flow Rate 100.4 F H 100 H 19 143/79 H 99 Room Air 2 03/27/23 07:22 03/27/23 08:00 03/27/23 07:22 03/27/23 07:22 03/27/23 07:22 03/27/23 09:00 03/26/23 15:06 Narrative: Constitutional Constitutional: no acute distress Comments: BMI 53.9 *Routine HEENT Exam Head: Present normocephalic Eye: Present EOMI and PERRL ENT: Present mucous membranes moist *Routine Neck Exam Neck: Present supple; Absent lymphadenopathy *Routine Respiratory Exam Respiratory: Present CTA bilaterally *Routine Cardiovascular Exam Cardiovascular: Present RRR *Routine Abdominal Exam Abdominal: Present soft and normoactive bowel sounds; Absent tenderness *Routine Rectal Exam Rectal:: deferred *Routine Genitalia Exam Genitalia:: deferred *Routine Extremities Exam Extremities: Present edema (right leg); Absent cyanosis or clubbing *Routine Skin Exam Skin: Present warm; Absent rash *Routine Neurological Exam Neurological: Present alert and oriented X3 DS: Diagnosis Discharge Diagnosis (1) Pulmonary embolism: Status: Acute Code(s): I26.99 - Other pulmonary embolism without acute cor pulmonale Qualifiers: Pulmonary embolism type: multiple subsegmental (without acute cor pulmonale) Qualified Code(s): I26.94 - Multiple subsegmental pulmonary emboli without acute cor pulmonale (2) DVT (deep venous thrombosis): Status: Acute Code(s): I82.409 - Acute embolism and thrombosis of unspecified deep veins of unspecified lower extremity Qualifiers: Affected thrombotic vein of extremity: unspecified vein of extremity Chronicity: acute DVT location: lower extremity Laterality: right Qualified Code(s): I82.401 - Acute embolism and thrombosis of unspecified deep veins of right lower extremity (3) MARYJANE (acute kidney injury): Status: Acute Code(s): N17.9 - Acute kidney failure, unspecified (4) Right leg swelling: Status: Acute Code(s): M79.89 - Other specified soft tissue disorders (5) Dyspnea: Status: Acute Code(s): R06.00 - Dyspnea, unspecified Qualifiers: Dyspnea type: unspecified Qualified Code(s): R06.00 - Dyspnea, unspecified (6) Morbid obesity: Status: Acute Code(s): E66.01 - Morbid (severe) obesity due to excess calories (7) GERD (gastroesophageal reflux disease): Status: Acute Code(s): K21.9 - Gastro-esophageal reflux disease without esophagitis Qualifiers: Esophagitis presence: esophagitis presence not specified Qualified Code(s): K21.9 - Gastro-esophageal reflux disease without esophagitis Meds Home Medications and Allergies Home Medications Medication Instructions Recorded Confirmed Type amitriptyline 25 mg tablet 25 mg PO HS MOOD 01/26/22 03/25/23 History gabapentin 400 mg capsule 400 mg PO BID Pain 01/26/22 03/25/23 History lisinopril 10 mg tablet 20 mg PO DAILY Hypertension 01/26/22 03/25/23 History metformin 1,000 mg tablet 1,000 mg PO BIDWMEAL Diabetes 01/26/22 03/25/23 History chlorthalidone 25 mg tablet 12.5 mg PO DAILY Fluid 03/25/23 03/25/23 History dulaglutide 1.5 mg/0.5 mL 1.5 mg SQ WEEKLY Diabetes 03/25/23 03/25/23 History subcutaneous pen injector (Trulicity) meloxicam 15 mg tablet 15 mg PO DAILY Pain 03/25/23 03/25/23 History omeprazole 20 mg tablet,delayed 20 mg PO DAILY Acid Reflux 03/25/23 03/25/23 History release apixaban 5 mg (74 tabs) tablets in 5 mg PO BID #74 tabs 03/26/23 Rx a dose pack (Eliquis DVT-PE Treat 30D Start) ondansetron HCl 4 mg tablet 4 mg PO Q8H PRN nausea and 03/27/23 Rx vomiting #15 tabs New Prescriptions to Start Prescriptions: apixaban [Eliquis DVT-PE Treat 30D Start] Artur Greenwood ondansetron HCl Artur Greenwood Allergies Allergy/AdvReac Type Severity Reaction Status Date / Time codeine Allergy Verified 03/25/23 15:00 Discharge Plan Disposition Patient Disposition: Home, Self-Care Condition: Fair Discharge Order Discharge Orders: Discharge Order (Routine); Ordered 03/27/23 Ordered By: Artur Greenwood Follow up Plan Follow up with: Michael Greer MD [Primary Care Provider] - 04/07/23 Prescriptions/Medication Reconciliation: New Eliquis DVT-PE Treat 30D Start 5 mg (74 tabs) tablets,dose pack 5 mg PO BID Qty: 74 0RF ondansetron HCl 4 mg tablet 4 mg PO Q8H PRN (Reason: nausea and vomiting) Qty: 15 0RF Continued metformin 1,000 mg tablet 1,000 mg PO BIDWMEAL amitriptyline 25 mg tablet 25 mg PO HS gabapentin 400 mg capsule 400 mg PO BID lisinopril 10 mg tablet 20 mg PO DAILY meloxicam 15 mg tablet 15 mg PO DAILY Patient Comments: TAKE 1 TABLET BY MOUTH ONCE DAILY chlorthalidone 25 mg Tablet 12.5 mg PO DAILY omeprazole 20 mg Tablet,Delayed Release (Dr/Ec) 20 mg PO DAILY Trulicity 1.5 mg/0.5 mL pen injector 1.5 mg SQ WEEKLY Problem Reconciliation Problems Reviewed?: Yes Patient Discharge Instructions ACTIVITY: Limited activity DIET: continue same diet Patient Instructions: DI for Deep Vein Thrombosis, DI for Pulmonary Embolism Providers Primary Care Provider: Michael Greer Admit Provider: Artur Greenwood Attending Provider: Artur Greenwood
== END 2023-03-27 10:06 | disposition home or self-care (01) ==
LOC: ER 12:31 → 2ND 13:57
PROVIDERS: Admitting Provider Family Medicine; Emergency Provider Student in an Organized Health Care Education/Training Program; PCP Family Medicine; Visit Provider Family Medicine
DX: I26.94 Multiple subsegmental thrombotic pulmonary emboli without acute cor pulmonale (principal); N17.9 Acute kidney failure, unspecified; E66.01 Morbid (severe) obesity due to excess calories; Z68.43 Body mass index [BMI] 50.0-59.9, adult; K21.9 Gastro-esophageal reflux disease without esophagitis; I82.401 Acute embolism and thrombosis of unspecified deep veins of right lower extremity; Z79.84 Long term (current) use of oral hypoglycemic drugs; Z79.899 Other long term (current) drug therapy; I10 Essential (primary) hypertension; E11.43 Type 2 diabetes mellitus with diabetic autonomic (poly)neuropathy; K31.84 Gastroparesis; E11.42 Type 2 diabetes mellitus with diabetic polyneuropathy
CPT/HCPCS: 36415; 71275; 80048; 80053; 82550; 82962; 83735; 83880; 84100; 84484; 85025; 87636; 93005; 93971; 99291; G0378; J2405; Q9967

== ENCOUNTER 2023-06-29 14:51 | Emergency (ER) | payer OTHER, SELFPAY ==
--- NOTE | 2023-06-29 15:02 | PC.NURSE ---
DR TIWARI AT BEDSIDE
[2023-06-29] MEDS: LACTATED RINGERS 1000ML 1,000 ML 999 ML IV ×2 (15:06→16:40)
[2023-06-29] MEDS: ONDANSETRON 4MG/2ML VIAL 4 MG IV (15:06)
[2023-06-29 15:12] VITALS: BP 141/86; PULSE 118; RESP 18; TEMP 36.5; O2SAT 98; BMI 59.4
[2023-06-29 15:18] LABS: Basophils # 0.1 K/mm3 (0-0.2); Basophils % 0.9 % (0.1-2.0); Eosinophils # 0.2 K/mm3 (0.0-0.4); Eosinophils % 2.3 % (0.1-12.0); Hematocrit 54.9 % (42.0-52.0); Hemoglobin 17.5 g/dL (14.1-18.0); Lymphocytes % 14.7 % (10-50); Mean Corpuscular HGB Conc 31.8 g/dL (31.8-35.4); Mean Corpuscular Hemoglobin 30.5 pg (27.0-31.2); Mean Corpuscular Volume 95.9 fl (80-94); Mean Platelet Volume 8.8 fl (7.4-10.4); Monocytes # 0.7 K/mm3 (0.1-1.0); Monocytes % 11.4 % (1.7-9.3); Neutrophils # 4.6 K/mm3 (1.8-7.8); Neutrophils % 70.6 % (37.0-80.0); Platelet Count 257 K/mm3 (142-424); Red Blood Count 5.72 M/mm3 (4.60-6.20); Red Cell Distribution Width 14.4 % (11.5-17.5); White Blood Count 6.5 K/mm3 (4.8-10.8)
[2023-06-29 15:19] LABS: VBG Base Excess -13.8 mmol/L (-2.4-2.3); VBG HCO3 12.8 mmol/L (23-30); VBG Oxygen Saturation 96.3 % (50-70); VBG PCO2 27.1 mmol/L (35-51); VBG PH 7.29 mmol/L (7.31-7.41); VBG PO2 77.9 mmol/L (28-40); VBG Total CO2 13.6 mmol/L (23-27)
[2023-06-29 15:24] LABS: Lactate Venous 2.2 mmol/L (0.4-2.0)
[2023-06-29 15:35] LABS: Chloride 113 mmol/L (98-107); Potassium 4.3 mmoL/L (3.5-5.1); Sodium 137 mmol/L (136-145)
[2023-06-29 15:38] LABS: Alanine Aminotransferase 74 U/L (12-78); Albumin Level 3.9 g/dl (3.5-5.0); Albumin/Globulin Ratio 1.2 (1.1-1.8); Alkaline Phosphatase 118 U/L (38-126); Anion Gap 17.3 mEq/L (5-15); Aspartate Amino Transferase 96 U/L (17-59); Bilirubin,Total 1.4 mg/dl (0.2-1.3); Blood Urea Nitrogen 45 mg/dl (9-20); Carbon Dioxide 11 mmol/L (22.0-30.0); Creatinine Clearance Estimated 32 mL/min (50-200); Estimated Glomerular Filt Rate 26 ml/min (>60); GFR (African American) 31 ML/MIN (>60); Globulin 3.3 g/dL (1.3-3.2); Total Protein,Serum 7.2 g/dl (6.3-8.2)
[2023-06-29 15:39] LABS: Calcium 8.5 mg/dl (8.4-10.2); Glucose 205 mg/dl (74-100)
--- NOTE | 2023-06-29 15:42 | HMH.EDGENADL ---
Discharge Plan Disposition Patient Disposition: Home, Self-Care Prescriptions Prescriptions: No Action metformin 1,000 mg tablet 1,000 mg PO BIDWMEAL amitriptyline 25 mg tablet 25 mg PO HS gabapentin 400 mg capsule 400 mg PO BID lisinopril 10 mg tablet 20 mg PO DAILY meloxicam 15 mg tablet 15 mg PO DAILY Patient Comments: TAKE 1 TABLET BY MOUTH ONCE DAILY chlorthalidone 25 mg Tablet 12.5 mg PO DAILY omeprazole 20 mg Tablet,Delayed Release (Dr/Ec) 20 mg PO DAILY Trulicity 1.5 mg/0.5 mL pen injector 1.5 mg SQ WEEKLY Eliquis DVT-PE Treat 30D Start 5 mg (74 tabs) tablets,dose pack 5 mg PO BID Qty: 74 0RF ondansetron HCl 4 mg tablet 4 mg PO Q8H PRN (Reason: nausea and vomiting) Qty: 15 0RF Referrals Follow up/Referrals: Michael Greer MD [Primary Care Provider] - See instructions Activity Restrictions/Add. Instructions Additional Instructions/Restrictions: Call your family doctor to establish care for this visit to the emergency department and schedule follow-up within 48 hours to ensure improvement. If you have any worsening of your condition or any other concerning signs or symptoms, return to the emergency department or your primary care doctor for further evaluation. Take antidiarrheal like Imodium as prescribed, every 4-6 hours. Clinical Impressions Clinical Impression: Moderate dehydration, Diarrhea Instructions Patient Instructions: DI for Acute Abdominal Pain Discharge ED Provider: Baldomero Bentley General Adult HPI General Chief complaint: Abdominal Pain Stated complaint: dizziness, vomiting, diarrhea Time Seen by Provider: 06/29/23 14:57 Mode of Arrival: Ambulatory Source of Information: Patient and Spouse Limitations: No Limitations Description of Symptoms (Recalled from ER Triage Doc. by RN): Pt. is here with complaints of nausea, diarrhea, and abdominal pain for 3 days. He states he has gastroparesis and he has a difficult time digesting his food. He takes reglan and that typically helps his symptoms but it hasn't this time. History of Present Illness HPI narrative: 58-year-old male history of morbid obesity, diabetes complicated by gastroparesis and peripheral neuropathy, CAD, high engine, hyperlipidemia, DVT with PE currently on warfarin with INR goal 2-3 presenting with diarrhea. Patient states that he has gastroparesis, has Reglan that he uses as needed when food will not pass. States that for the past 5 days now, he has had diarrhea that is nonbloody. Associated with p.o. intake, cramping in his abdomen, but no distinct pain. No fevers or chills, he has been nauseated without vomiting. States that he actually felt a little better yesterday, 06/27, today, continued having diarrhea every 30 minutes or so, so came to the emergency department out of concern for dehydration and weakness. No recent travel, but patient has multiple kids in the family he has been in contact with, unsure if they are sick, but they do attend daycare. Please note that above description of symptoms, in this electronic medical record under categorization of recalled from ER triage doctor by RN are reflective of an initial nursing assessment, however, is not reflective of my full history and physical exam that was personally taken and clarified. Consequentially, this preceding description of symptoms, which may include the patient's categorized chief complaint in the EMR, do not reflect my personal clinical impression, and the ultimate description of history of present illness and patient stated complaints should be deferred to this section of the note. Unless stated otherwise or congruent with this section of the note, additional signs, symptoms, or incongruence should be interpreted as inaccurate with my clinical impression. Related Data Home Medications Medication Instructions Recorded Confirmed amitriptyline 25 mg tablet 25 mg PO HS MOOD 01/26/22 03/25/23 gabapentin 400 mg capsule 400 mg PO BID Pain 01/26/22 03/25/23 lisinopril 10 mg tablet 20 mg PO DAILY Hypertension 01/26/22 03/25/23 metformin 1,000 mg tablet 1,000 mg PO BIDWMEAL Diabetes 01/26/22 03/25/23 chlorthalidone 25 mg tablet 12.5 mg PO DAILY Fluid 03/25/23 03/25/23 dulaglutide 1.5 mg/0.5 mL 1.5 mg SQ WEEKLY Diabetes 03/25/23 03/25/23 subcutaneous pen injector (Trulicity) meloxicam 15 mg tablet 15 mg PO DAILY Pain 03/25/23 03/25/23 omeprazole 20 mg tablet,delayed 20 mg PO DAILY Acid Reflux 03/25/23 03/25/23 release Previous Rx's Medication Instructions Recorded apixaban 5 mg (74 tabs) tablets in 5 mg PO BID #74 tabs 03/26/23 a dose pack (Eliquis DVT-PE Treat 30D Start) ondansetron HCl 4 mg tablet 4 mg PO Q8H PRN nausea and 03/27/23 vomiting #15 tabs Allergies Allergy/AdvReac Type Severity Reaction Status Date / Time codeine Allergy Verified 03/25/23 15:00 [facility] Disclaimer: The information contained in this section may have been updated after the patient was seen, as this information can be updated by other users. Medical History (Updated 06/29/23 @ 17:37 by Baldomero Bentley MD) GERD (gastroesophageal reflux disease) Morbid obesity Neuropathy Gastroparesis Hypertension Diabetes mellitus, type 2 Surgical History (Updated 03/25/23 @ 15:11 by Ebony Quiñonez RN) History of cholecystectomy Family History (Updated 03/25/23 @ 15:13 by Ebony Quiñonez, RN) Other Family history of diabetes mellitus type II Social History (Updated 03/25/23 @ 15:14 by Ebony Quiñonez RN) Smoking Status: Never smoker alcohol intake: never current occupational status: other Travel in the last 8 weeks: None ROS Obtained: Yes All systems reviewed & no additional complaints except as documented Physical Exam General General appearance: alert, in no apparent distress and obese Head Head exam: atraumatic and normocephalic Eye Eye exam: Present normal appearance, PERRL and EOMI ENT ENT exam: Present mucous membranes moist Neck Neck exam: Present normal inspection, full ROM and trachea midline Respiratory Respiratory exam: Absent respiratory distress, wheezes, stridor, accessory muscle use or prolonged expiratory phase Cardiovascular Cardiovascular exam: Present normal rhythm Abdominal Exam Abdominal exam: Present soft; Absent distention, tenderness, guarding, rebound or rigidity Extremities Exam Extremities exam: Present edema Neurological Exam Neurological exam: Present alert, oriented X3, CN II-XII intact and normal gait; Absent motor sensory deficit Skin Skin exam: Present warm and dry; Absent diaphoresis or erythema Medical Decision Making Medical Records Medical records reviewed: Yes I reviewed the patient's medical records. Alex Inquiry Pt receiving controlled substance: No Alex was queried for this patient: No Vital Signs: 06/29/23 15:12 06/29/23 16:00 06/29/23 16:30 Temperature 97.7 F Temperature Source Temporal Artery Scan Pulse Rate 87 86 Pulse Rate [Right Brachial] 118 H Respiratory Rate 18 Blood Pressure 121/66 97/51 L Blood Pressure [Right Arm] 141/86 H Blood Pressure Mean Blood Pressure Mean [Right Arm] 104 Blood Pressure Source Automatic Cuff Automatic Cuff Blood Pressure Source [Right Arm] Automatic Cuff Blood Pressure Position Supine Supine Blood Pressure Position [Right Arm] Sitting 02 Sat by Pulse Oximetry 98 99 98 Oxygen Delivery Method Room Air Room Air Room Air 06/29/23 16:30 Temperature Temperature Source Pulse Rate 84 Pulse Rate [Right Brachial] Respiratory Rate Blood Pressure 97/51 L Blood Pressure [Right Arm] Blood Pressure Mean 66 Blood Pressure Mean [Right Arm] Blood Pressure Source Blood Pressure Source [Right Arm] Blood Pressure Position Blood Pressure Position [Right Arm] 02 Sat by Pulse Oximetry 98 Oxygen Delivery Method Lab Data Lab Results 06/29/23 15:10: WBC 6.5, RBC 5.72, Hgb 17.5, Hct 54.9 H, MCV 95.9 H, MCH 30.5, MCHC 31.8, RDW 14.4, Plt Count 257, MPV 8.8, Neut % (Auto) 70.6, Lymph % (Auto) 14.7, [place] % (Auto) 11.4 H, Eos % (Auto) 2.3, Baso % (Auto) 0.9, Neut # (Auto) 4.6, Lymph # (Auto) 1.0, [place] # (Auto) 0.7, Eos # (Auto) 0.2, Baso # (Auto) 0.1, Sodium 137, Potassium 4.3, Chloride 113 H, Carbon Dioxide 11 L, Anion Gap 17.3 H, BUN 45 H, Creatinine 2.60 H, Estimated Creat Clear 32, Estimated GFR 26 L, Est GFR ( Amer) 31 L, Glucose 205 H, Calcium 8.5, Total Bilirubin 1.4 H, AST 96 H, ALT 74, Alkaline Phosphatase 118, Total Protein 7.2, Albumin 3.9, Globulin 3.3 H, Albumin/Globulin Ratio 1.2, Lipase 348 H 06/29/23 15:12: VBG pH 7.29 L, VBG pCO2 27.1 L, VBG pO2 77.9 H, VBG HCO3 12.8 L, VBG Total CO2 13.6 L, VBG O2 Saturation 96.3 H, VBG Base Excess -13.8 L, VBG Lactic Acid 2.2 H 06/29/23 16:25: PT 30.2 H, INR 3.00 H 06/29/23 15:10 06/29/23 15:10 Orders (Tests/Meds): ED MEDICATIONS Discontinued Medications Generic Name Dose Route Start Last Admin Trade Name Wyatt PRN Reason Stop Dose Admin Lactated Ringer's 1,000 mls @ 999 mls/hr 06/29/23 14:58 06/29/23 15:06 Lactated Ringer's 1000 Ml Bag IV 06/29/23 15:58 999 mls/hr .Q1H1M ONE Administration Lactated Ringer's 1,000 mls @ 999 mls/hr 06/29/23 16:03 06/29/23 16:40 Lactated Ringer's 1000 Ml Bag IV 06/29/23 17:03 999 mls/hr .Q1H1M ONE Administration Ondansetron HCl 4 mg 06/29/23 14:58 06/29/23 15:06 Ondansetron 4mg/2ml Vial IV 06/29/23 14:59 4 mg ONCE ONE Administration ORDERS Category Date Time Status CBC w/Auto Diff [Complete Blood Count Auto Diff] Stat Lab 06/29/23 15:10 Completed CMP [Comprehensive Metabolic Panel] Stat Lab 06/29/23 15:10 Completed INR [Prothrombin Time INR] Stat Lab 06/29/23 16:25 Completed Lipase Stat Lab 06/29/23 15:10 Completed VBG [Venous Blood Gas] Stat RT 06/29/23 15:12 Completed Medical Decision Narrative: 58-year-old male history of cholecystectomy, morbid obesity, diabetes complicated by gastroparesis and peripheral neuropathy, CAD, high engine, hyperlipidemia, DVT with PE currently on warfarin with INR goal 2-3 presenting with diarrhea. Patient states that he has gastroparesis, has Reglan that he uses as needed when food will not pass. States that for the past 5 days now, he has had diarrhea that is nonbloody. Associated with p.o. intake, cramping in his abdomen, but no distinct pain. No fevers or chills, he has been nauseated without vomiting. States that he actually felt a little better yesterday, 06/27, today, continued having diarrhea every 30 minutes or so, so came to the emergency department out of concern for dehydration and weakness. No recent travel, but patient has multiple kids in the family he has been in contact with, unsure if they are sick, but they do attend daycare. No recent antibiotic or medication changes. History was obtained via conversation with patient and . On arrival, patient hemodynamically stable, alert, oriented x4, appropriate, GCS 15, moving all extremities spontaneously, pupils equal and reactive to light. Full physical exam performed and significant for chronically ill, obese patient in no acute distress. Nontachycardic, afebrile, normotensive. Abdomen is soft, nontender, nondistended. No overlying skin changes. Cardiopulmonary exam grossly intact. Differential includes enteritis, colitis, pancreatitis, hepatitis, among others. Patient was given 1 L fluid bolus, Zofran IV for symptomatic management and correction of underlying abnormalities. Patient was placed in observation beginning at 3 PM in order to obtain labs, give fluids, nausea medication and determine need for admission versus home-going. The patient was provided fluids and meds while awaiting results. Independent interpretation of results demonstrated Chemistry with mild MARYJANE creatinine up at 2.6 from baseline normal 1.5-2. Anion gap mildly elevated 17.3, LFTs nonactionable and likely related to dehydration. Lipase nonactionable. pH on VBG mildly acidotic 7.29, patient's bicarbonate low at 12.8 and CO2 low at 27 representing uncompensated metabolic acidosis. Lactic acid 2.2. I feel this is due to moderate to severe dehydration in the setting of severe diarrhea.. On reevaluation, patient feeling much better and opting to leave. At this time, I feel patient is appropriate for discharge. Total observation time 2.[address] abdomen pelvis was considered, but not deemed necessary at this time. Patient's abdominal exam extremely benign and patient feeling much better after fluids. Because patient at baseline without signs or symptoms of clinical decompensation, deemed appropriate for discharge. Results were relayed to patient who voiced understanding and were agreeable to outpatient management and follow up. I discussed my clinical impression with patient and answered all questions. At this time, the evidence for any other entities in the differential is insufficient to warrant any further testing or ED observation. This was explained as well. Advisory was given that persistent or worsening symptoms require further evaluation. I confirmed the understanding of this discussion. Critical Care Critical Care Time Critical Care Time: No
[2023-06-29 16:00] VITALS: BP 121/66; PULSE 87; O2SAT 99
--- NOTE | 2023-06-29 16:24 | PC.NURSE ---
lab at bedside to draw PT/INR.
[2023-06-29 16:28] LABS: Lipase 348 U/L (23-300)
[2023-06-29 16:30] VITALS: BP 97/51; PULSE 84; PULSE 86; O2SAT 98
[2023-06-29 16:45] LABS: Prothrombin Time 30.2 seconds (10.1-12.5)
[2023-06-29 17:46] VITALS: BP 130/63; PULSE 78; RESP 18; TEMP 36.7; O2SAT 97
[2023-06-29 19:24] LABS: Reflex Lactic Add Lactic Reflex
== END 2023-06-29 17:56 | disposition home or self-care (01) ==
PROVIDERS: Emergency Provider Emergency Medicine; PCP Family Medicine
DX: E86.0 Dehydration (principal); R19.7 Diarrhea, unspecified; R11.2 Nausea with vomiting, unspecified; I10 Essential (primary) hypertension; E11.40 Type 2 diabetes mellitus with diabetic neuropathy, unspecified; K21.9 Gastro-esophageal reflux disease without esophagitis; E66.01 Morbid (severe) obesity due to excess calories; Z79.84 Long term (current) use of oral hypoglycemic drugs; Z79.85 Long-term (current) use of injectable non-insulin antidiabetic drugs; Z68.43 Body mass index [BMI] 50.0-59.9, adult
CPT/HCPCS: 36415; 80053; 82803; 83690; 85025; 85610; 96361; 96374; 99284; J2405

== ENCOUNTER 2023-06-30 15:26 | Outpatient (CLI) | payer OTHER, SELFPAY ==
[2023-06-30 15:32] LABS: Adenovirus F 40/41, stool Not Detected (NotDetected); Campylobacter Not Detected (NotDetected); Clostridium Difficile A/B, PCR Not Detected (NotDetected); Cyclospora Cayetanesis Not Detected (NotDetected); Entamoeba histolytica Not Detected (NotDetected); Enteroaggregative E coli Not Detected (NotDetected); Enteropathogenic E coli Not Detected (NotDetected); Enterotoxigenic E coli Not Detected (NotDetected); Giardia lamblia Not Detected (NotDetected); Norovirus Not Detected (NotDetected); Plesimonas Shigalloides, PCR Not Detected (NotDetected); Rotavirus A Not Detected (NotDetected); Salmonella, PCR Not Detected (NotDetected); Sapovirus Not Detected (NotDetected); Shiga-like toxin E coli Not Detected (NotDetected); Shigella Enterovasive E coli Not Detected (NotDetected); Vibrio Cholerae Not Detected (NotDetected); Vibrio, PCR Not Detected (NotDetected); Yersinia Entercolitica, PCR Not Detected (NotDetected)
[2023-07-04 12:45] LABS: Astrovirus Not Detected (NotDetected)
[2023-07-04 12:48] LABS: Cryptosporidium Detected (NotDetected)
== END 2023-06-30 23:59 ==
PROVIDERS: PCP Family Medicine; Visit Provider Family Medicine
DX: R19.7 Diarrhea, unspecified (principal); A07.2 Cryptosporidiosis
CPT/HCPCS: 87507

== ENCOUNTER 2023-07-05 09:28 | Emergency (ER) | payer OTHER, SELFPAY ==
[2023-07-05] VITALS (7 sets, daily range): BP systolic 92–126; BP diastolic 48–64; PULSE 99–112; RESP 20–21; TEMP 36.7; O2SAT 96–99; BMI 55.3
--- NOTE | 2023-07-05 10:10 | HMH.EDGENADL ---
Discharge Plan Disposition Patient Disposition: Home, Self-Care Prescriptions Prescriptions: New nitazoxanide 500 mg tablet 500 mg PO BID 3 Days Qty: 6 0RF Rx Instructions: must administer with a meal/food No Action metformin 1,000 mg tablet 1,000 mg PO BIDWMEAL amitriptyline 25 mg tablet 25 mg PO HS gabapentin 400 mg capsule 400 mg PO BID lisinopril 10 mg tablet 20 mg PO DAILY meloxicam 15 mg tablet 15 mg PO DAILY Patient Comments: TAKE 1 TABLET BY MOUTH ONCE DAILY chlorthalidone 25 mg Tablet 12.5 mg PO DAILY omeprazole 20 mg Tablet,Delayed Release (Dr/Ec) 20 mg PO DAILY Trulicity 1.5 mg/0.5 mL pen injector 1.5 mg SQ WEEKLY Eliquis DVT-PE Treat 30D Start 5 mg (74 tabs) tablets,dose pack 5 mg PO BID Qty: 74 0RF ondansetron HCl 4 mg tablet 4 mg PO Q8H PRN (Reason: nausea and vomiting) Qty: 15 0RF Referrals Follow up/Referrals: Michael Greer MD [Primary Care Provider] - See instructions Activity Restrictions/Add. Instructions Additional Instructions/Restrictions: Nitazoxanide twice daily for 3 days with food. Call your family doctor to establish care for this visit to the emergency department and schedule follow-up within 48 hours to ensure improvement. Dr. Greer stated he could see you 2 days from now on 07/06 for repeat labs. If you have any worsening of your condition or any other concerning signs or symptoms, return to the emergency department or your primary care doctor for further evaluation. Imodium continued for control of diarrhea. Clinical Impressions Clinical Impression: Cryptosporidial gastroenteritis Instructions Patient Instructions: DI for Diarrhea and Traveler's Diarrhea -- Adult, DI for Diarrhea and Traveler's Diarrhea -- Child, DI for Nausea -- Adult, DI for Nausea -- Child Discharge ED Provider: Baldomero Bentley General Adult HPI General Chief complaint: Nausea/Vomiting/Diarrhea Stated complaint: persistent diarrhea Time Seen by Provider: 07/05/23 09:35 Mode of Arrival: Wheelchair Source of Information: Patient Limitations: No Limitations Description of Symptoms (Recalled from ER Triage Doc. by RN): pt to ed from dr kebede office c/o diarrhea x2 days. pt states he has not been able to keep fluids in and feels dehydrated. pt denies any pain. pt reports mild weakness. History of Present Illness HPI narrative: 58-year-old male recently diagnosed with gastroenteritis presenting with positive stool culture for Cryptosporidium. Has been having persistent diarrhea the last couple of days after having contact with multiple bouts. He was seen by me a couple days prior to this visit, stool sample was sent. Resulted with Cryptosporidium. Went to family doctor today, family doctor recommended going to the emergency department. Patient states that he feels well overall, diarrhea has slowed down with Imodium, still tolerating p.o. intake. No bloody diarrhea. Overall improved. Please note that above description of symptoms, in this electronic medical record under categorization of recalled from ER triage doctor by RN are reflective of an initial nursing assessment, however, is not reflective of my full history and physical exam that was personally taken and clarified. Consequentially, this preceding description of symptoms, which may include the patient's categorized chief complaint in the EMR, do not reflect my personal clinical impression, and the ultimate description of history of present illness and patient stated complaints should be deferred to this section of the note. Unless stated otherwise or congruent with this section of the note, additional signs, symptoms, or incongruence should be interpreted as inaccurate with my clinical impression. Related Data Home Medications Medication Instructions Recorded Confirmed amitriptyline 25 mg tablet 25 mg PO HS MOOD 01/26/22 03/25/23 gabapentin 400 mg capsule 400 mg PO BID Pain 01/26/22 03/25/23 lisinopril 10 mg tablet 20 mg PO DAILY Hypertension 01/26/22 03/25/23 metformin 1,000 mg tablet 1,000 mg PO BIDWMEAL Diabetes 01/26/22 03/25/23 chlorthalidone 25 mg tablet 12.5 mg PO DAILY Fluid 03/25/23 03/25/23 dulaglutide 1.5 mg/0.5 mL 1.5 mg SQ WEEKLY Diabetes 03/25/23 03/25/23 subcutaneous pen injector (Trulicity) meloxicam 15 mg tablet 15 mg PO DAILY Pain 03/25/23 03/25/23 omeprazole 20 mg tablet,delayed 20 mg PO DAILY Acid Reflux 03/25/23 03/25/23 release Previous Rx's Medication Instructions Recorded apixaban 5 mg (74 tabs) tablets in 5 mg PO BID #74 tabs 03/26/23 a dose pack (Eliquis DVT-PE Treat 30D Start) ondansetron HCl 4 mg tablet 4 mg PO Q8H PRN nausea and 03/27/23 vomiting #15 tabs nitazoxanide 500 mg tablet 500 mg PO BID 3 days #6 tabs 07/05/23 Allergies Allergy/AdvReac Type Severity Reaction Status Date / Time codeine Allergy Verified 03/25/23 15:00 [facility] Disclaimer: The information contained in this section may have been updated after the patient was seen, as this information can be updated by other users. Medical History (Updated 07/05/23 @ 10:14 by Baldomero Bentley MD) GERD (gastroesophageal reflux disease) Morbid obesity Neuropathy Gastroparesis Hypertension Diabetes mellitus, type 2 Surgical History (Updated 03/25/23 @ 15:11 by Ebony Quiñonez RN) History of cholecystectomy Family History (Updated 03/25/23 @ 15:13 by Ebony Quiñonez RN) Other Family history of diabetes mellitus type II Social History (Updated 03/25/23 @ 15:14 by Ebony Quiñonez RN) Smoking Status: Never smoker alcohol intake: never current occupational status: other Travel in the last 8 weeks: None ROS Obtained: Yes All systems reviewed & no additional complaints except as documented Physical Exam General General appearance: alert, in no apparent distress and obese Head Head exam: atraumatic and normocephalic Eye Eye exam: Present normal appearance, PERRL and EOMI ENT ENT exam: Present mucous membranes moist Neck Neck exam: Present normal inspection, full ROM and trachea midline Respiratory Respiratory exam: Absent respiratory distress, wheezes, stridor, accessory muscle use or prolonged expiratory phase Cardiovascular Cardiovascular exam: Present normal rhythm Abdominal Exam Abdominal exam: Present soft; Absent distention, tenderness, guarding, rebound or rigidity Extremities Exam Extremities exam: Absent edema Neurological Exam Neurological exam: Present alert, oriented X3, CN II-XII intact and normal gait; Absent motor sensory deficit Skin Skin exam: Present warm and dry; Absent diaphoresis or erythema Medical Decision Making Medical Records Medical records reviewed: Yes I reviewed the patient's medical records. Alex Inquiry Pt receiving controlled substance: No Alex was queried for this patient: No Vital Signs: 07/05/23 10:00 07/05/23 10:02 07/05/23 10:30 Temperature 98.1 F Temperature Source Oral Pulse Rate 101 H 99 H Pulse Rate [Left Radial] 112 H Respiratory Rate 21 20 Blood Pressure 93/48 L 99/57 L Blood Pressure [Right Arm] 98/61 L Blood Pressure Mean 63 71 Blood Pressure Mean [Right Arm] 73 02 Sat by Pulse Oximetry 98 96 97 Oxygen Delivery Method Room Air Room Air 07/05/23 11:00 07/05/23 11:30 07/05/23 12:01 Temperature Temperature Source Pulse Rate 100 H 107 H 102 H Pulse Rate [Left Radial] Respiratory Rate 20 Blood Pressure 115/61 92/61 L 119/64 Blood Pressure [Right Arm] Blood Pressure Mean 74 66 76 Blood Pressure Mean [Right Arm] 02 Sat by Pulse Oximetry 98 98 99 Oxygen Delivery Method Room Air Room Air Lab Data Lab Results 07/05/23 10:11: WBC 7.3, RBC 5.87, Hgb 17.6, Hct 53.8 H, MCV 91.7, MCH 30.0, MCHC 32.7, RDW 14.6, Plt Count 361, MPV 7.9, Neut % (Auto) 74.1, Lymph % (Auto) 16.4, Terrell % (Auto) 8.0, Eos % (Auto) 0.8, Baso % (Auto) 0.7, Neut # (Auto) 5.4, Lymph # (Auto) 1.2, Terrell # (Auto) 0.6, Eos # (Auto) 0.1, Baso # (Auto) 0.1, Sodium 133 L, Potassium 3.2 L, Chloride 110 H, Carbon Dioxide 11 L, Anion Gap 15.2 H, BUN 82 H, Creatinine 4.30 H, Estimated Creat Clear 20, Estimated GFR 14 L*, Est GFR ( Amer) 17 L*, Glucose 202 H, Lactate 1.2, Calcium 8.7, Total Bilirubin 0.8, AST 38, ALT 35, Alkaline Phosphatase 115, Total Protein 7.5, Albumin 4.0, Globulin 3.5 H, Albumin/Globulin Ratio 1.1 07/05/23 10:11 07/05/23 10:11 Orders (Tests/Meds): ED MEDICATIONS Discontinued Medications Generic Name Dose Route Start Last Admin Trade Name Freq PRN Reason Stop Dose Admin Lactated Ringer's 1,000 mls @ 999 mls/hr 07/05/23 09:35 07/05/23 10:24 Lactated Ringer's 1000 Ml Bag IV 07/05/23 10:35 999 mls/hr .Q1H1M ONE Administration Lactated Ringer's 1,000 mls @ 999 mls/hr 07/05/23 11:18 07/05/23 11:28 Lactated Ringer's 1000 Ml Bag IV 07/05/23 12:18 999 mls/hr .Q1H1M ONE Administration Nitazoxanide 500 mg 07/05/23 09:48 07/05/23 11:30 Nitazoxanide 500 Mg Tablet PO 07/05/23 09:49 Not Given ONCE ONE ORDERS Category Date Time Status CBC w/Auto Diff [Complete Blood Count Auto Diff] Stat Lab 07/05/23 10:11 Completed CMP [Comprehensive Metabolic Panel] Stat Lab 07/05/23 10:11 Completed Lactic Acid Stat Lab 07/05/23 10:11 Completed Medical Decision Narrative: 58-year-old male recently diagnosed with gastroenteritis presenting with positive stool culture for Cryptosporidium. Has been having persistent diarrhea the last couple of days after having contact with multiple bouts. He was seen by me a couple days prior to this visit, stool sample was sent. Resulted with Cryptosporidium. Went to family doctor today, family doctor recommended going to the emergency department. Patient states that he feels well overall, diarrhea has slowed down with Imodium, still tolerating p.o. intake. No bloody diarrhea. Overall improved. History obtained with patient, family, chart review. On arrival, patient hemodynamically stable, alert, appears much more comfortable than he did a couple days prior when he visited. Unremarkable physical exam. Given patient's diarrhea, history, Cryptosporidium, patient given IV fluids. Attempted to give nitazoxanide, but we do not have it here in the hospital. Labs resulted with nonactionable CBC, but chemistry with MARYJANE in the setting of CKD. Creatinine 4.3 and BUN 82. Patient was given 2 L of fluids and feels much better. Producing urine without issue. Lactate negative. Because patient at baseline without signs or symptoms of clinical decompensation, deemed appropriate for discharge. Results were relayed to patient who voiced understanding and were agreeable to outpatient management and follow up. I discussed my clinical impression with patient and answered all questions. At this time, the evidence for any other entities in the differential is insufficient to warrant any further testing or ED observation. This was explained as well. Advisory was given that persistent or worsening symptoms require further evaluation. I confirmed the understanding of this discussion. I called patient's primary care provider and he stated that he get patient in 2 days from now on July 06 to recheck kidney labs, patient and PCP agreeable to this. Critical Care Critical Care Time Critical Care Time: No
[2023-07-05 10:22] LABS: Basophils # 0.1 K/mm3 (0-0.2); Basophils % 0.7 % (0.1-2.0); Eosinophils # 0.1 K/mm3 (0.0-0.4); Eosinophils % 0.8 % (0.1-12.0); Hematocrit 53.8 % (42.0-52.0); Hemoglobin 17.6 g/dL (14.1-18.0); Lymphocytes # 1.2 K/mm3 (0.7-4.5); Lymphocytes % 16.4 % (10-50); Mean Corpuscular HGB Conc 32.7 g/dL (31.8-35.4); Mean Corpuscular Volume 91.7 fl (80-94); Mean Platelet Volume 7.9 fl (7.4-10.4); Monocytes # 0.6 K/mm3 (0.1-1.0); Neutrophils # 5.4 K/mm3 (1.8-7.8); Neutrophils % 74.1 % (37.0-80.0); Platelet Count 361 K/mm3 (142-424); Red Blood Count 5.87 M/mm3 (4.60-6.20); Red Cell Distribution Width 14.6 % (11.5-17.5); White Blood Count 7.3 K/mm3 (4.8-10.8)
[2023-07-05] MEDS: LACTATED RINGERS 1000ML 1,000 ML 999 ML IV ×2 (10:24→11:28)
[2023-07-05 10:26] LABS: Chloride 110 mmol/L (98-107); Potassium 3.2 mmoL/L (3.5-5.1); Sodium 133 mmol/L (136-145)
--- NOTE | 2023-07-05 10:27 | PC.NURSE ---
Rounded on patient and family; call light within reach of patient
[2023-07-05 10:28] LABS: Creatinine Clearance Estimated 20 mL/min (50-200); Estimated Glomerular Filt Rate 14 ml/min (>60); GFR (African American) 17 ML/MIN (>60)
[2023-07-05 10:29] LABS: Alanine Aminotransferase 35 U/L (12-78); Albumin/Globulin Ratio 1.1 (1.1-1.8); Alkaline Phosphatase 115 U/L (38-126); Anion Gap 15.2 mEq/L (5-15); Aspartate Amino Transferase 38 U/L (17-59); Bilirubin,Total 0.8 mg/dl (0.2-1.3); Calcium 8.7 mg/dl (8.4-10.2); Carbon Dioxide 11 mmol/L (22.0-30.0); Globulin 3.5 g/dL (1.3-3.2); Glucose 202 mg/dl (74-100); Total Protein,Serum 7.5 g/dl (6.3-8.2)
[2023-07-05 10:32] LABS: Blood Urea Nitrogen 82 mg/dl (9-20)
[2023-07-05 10:33] LABS: Lactic Acid 1.2 mmol/L (0.7-2.1)
--- NOTE | 2023-07-05 12:53 | PC.NURSE ---
RX RETRANSMITTED TO [facility]
== END 2023-07-05 12:33 | disposition home or self-care (01) ==
PROVIDERS: Emergency Provider Emergency Medicine; PCP Family Medicine
DX: A07.2 Cryptosporidiosis (principal); E87.6 Hypokalemia; E87.1 Hypo-osmolality and hyponatremia; R19.7 Diarrhea, unspecified; E11.40 Type 2 diabetes mellitus with diabetic neuropathy, unspecified; K21.9 Gastro-esophageal reflux disease without esophagitis; I10 Essential (primary) hypertension; Z79.84 Long term (current) use of oral hypoglycemic drugs; Z79.85 Long-term (current) use of injectable non-insulin antidiabetic drugs
CPT/HCPCS: 80053; 83605; 85025; 96360; 96361; 99284

== ENCOUNTER 2024-03-20 10:40 | Outpatient (CLI) | payer OTHER, SELFPAY ==
--- NOTE | 2024-03-20 | CA_ITS ---
FINAL REPORT CLINICAL HISTORY: HTN, DM, MORBID OBESITY Right sided weakness x 1 week TDE due to body habitus HT 5'10 WT 450lb COMPARISON: None FINDINGS: RIGHT CAROTID: CCA PSV -102 cm/sec ICA PSV -61 cm/sec ICA/CCA PSV ratio -0.8. Comments: Minimal plaque disease is noted. LEFTCAROTID: CCA PSV -110. cm/sec ICA PSV -67. cm/sec ICA/CCA PSV ratio -0.6. Comments: Minimal plaque disease is noted. Antegrade flow is seen within the vertebral arteries. IMPRESSION: Carotid stenosis classified less than 50% with minimal bilateral plaque. Antegrade flow bilateral vertebral arteries. Reviewed, Interpreted and Dictated by Kim Nixon MD Transcribed by Carmela Leija Authenticated and . [facility]
== END 2024-03-20 23:59 | disposition home or self-care (01) ==
LOC: RT 10:41
PROVIDERS: PCP Family Medicine; Visit Provider Family Medicine
DX: R53.1 Weakness (principal)
CPT/HCPCS: 93880

== ENCOUNTER 2024-09-11 11:57 | Outpatient (CLI) | payer OTHER, SELFPAY ==
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
--- OUTSIDE RECORDS SUMMARY | 2024-09-11 12:01 | XMS_ITS | Data Portability ---
Author Organization [facility] & DREW Ray ADMIN Address [address] [place] [address] Care Team Providers Care Stopper Maker Helper Name Role Phone HEBER GARDNER JR Referring Provider HECTOR WISE Primary Care Provider Assessment No assessment recorded. Plan of Treatment Reminders Order Date Submit Date Provider Last Modified By Organization Details Last Modified Time Details Appointments None recorded. Lab None recorded. Referral bariatric surgery referral 2021 [facility] Juarez White, [address], [address], [place], [address], 09:01:01 general surgeon referral 2021 [email or web address] Sada Jackson, [address], [address], [place], [address], 09:09:37 Procedures None recorded. Surgeries None recorded. Imaging NM, hepatobili mat scan 2021 [facility] (Centralized Scheduling), [address] , [place], [address], 15:21:23 Medication Orders omeprazole 20 mg capsule,de layed release 2021 [facility], [address], [place], [address], 11:05:52 Patient TargetsNo targets recorded. Patient Instructions Encounter Date Encounter Id Patient Instructions Last Modified By Organization Details Last Modified Time 02/10/2022 [id number] low-fat diet for gallbladder disease: care instructions [email or web address] Not available 02/10/2022 10:14:44 Reason for Referral General Surgeon Referral for Cholelithiasis without obstruction Referring Physician: Nitza [facility], Encounter Date: 02/10/2022 Bariatric Surgery Referral f or Morbid obesity Referring Physician: Nitza [facility], Encounter Date: 02/10/2022 Results Created Date Observation Date Name Description Value Unit Range Abnormal Flag Note LastModifiedBy Organization Detail LastModifiedTime 03/11/20 22 03/11/2022 CBC AUTO NO DIFF (HEMO GRAM) WBC 6.8 K/uL 4.0-10 .5 Not Available [facility] ([facility]) [address] , [place], [address], 03/11/2022 09:14:13 03/11/20 22 03/11/2022 CBC AUTO NO DIFF (HEMO GRAM) RBC 5.7 M/mm3 4.7-6. 1 Not Available [facility] ([facility]) [address] , [place], [address], 03/11/2022 09:14:13 03/11/20 22 03/11/2022 CBC AUTO NO DIFF (HEMO GRAM) HGB 17.0 gm/dL 13.5-1 8.0 Not Available [facility] ([facility]) [address] , [place], [address], 03/11/2022 09:14:13 03/11/20 22 03/11/2022 CBC AUTO NO DIFF (HEMO GRAM) HCT 50.5 % 42.0-5 2.0 Not Available [facility] ([facility]) [address] , [place], [address], 03/11/2022 09:14:13 03/11/20 22 03/11/2022 CBC AUTO NO DIFF (HEMO GRAM) MCV 89.4 fL 78-100 Not Available [facility] ([facility]) [address] , [place], [address], 03/11/2022 09:14:13 03/11/20 22 03/11/2022 CBC AUTO NO DIFF (HEMO GRAM) MCH 30.1 pg 27-31 Not Available [facility] ([facility]) [address] , [place], [address], 03/11/2022 09:14:13 03/11/20 22 03/11/2022 CBC AUTO NO DIFF (HEMO GRAM) MCHC 33.7 g/dL 32-36 Not Available [facility] ([facility]) [address] , [place], [address], 03/11/2022 09:14:13 03/11/20 22 03/11/2022 CBC AUTO NO DIFF (HEMO GRAM) RDW 13.9 % 11.5-1 4.0 Not Available [facility] ([facility]) [address] , [place], [address], 03/11/2022 09:14:13 03/11/20 22 03/11/2022 CBC AUTO NO DIFF (HEMO GRAM) platelet count 260 K/uL 150-45 0 Not Available [facility] ([facility]) [address] , [place], [address], 03/11/2022 09:14:13 03/11/20 22 03/11/2022 CBC AUTO NO DIFF (HEMO GRAM) manual differential NO Not Available [facility] ([facility]) [address] , [place], [address], 03/11/2022 09:14:13 03/11/20 22 03/11/2022 COMP METAB OLIC PANEL sodium 137 mmol/ L 136-14 5 Not Available [facility] ([facility]) [address], [place], [address], 03/11/2022 09:45:31 03/11/20 22 03/11/2022 COMP METAB OLIC PANEL potassium 4.0 mmol/ L 3.6-5. 0 Not Available [facility] ([facility]) [address], [place], [address], 03/11/2022 09:45:31 03/11/20 22 03/11/2022 COMP METAB OLIC PANEL chloride 100 mmol/ L 98-107 Not Available [facility] ([facility]) [address], [place], [address], 03/11/2022 09:45:31 03/11/20 22 03/11/2022 COMP METAB OLIC PANEL carbon dioxide 28.4 mmol/ L 21.0-3 2.0 Not Available [facility] ([facility]) [address] , [place], [address], 03/11/2022 09:45:31 03/11/20 22 03/11/2022 COMP METAB OLIC PANEL anion gap 12.6 Not Available [facility] ([facility]) [address] , [place], [address], 03/11/2022 09:45:31 03/11/20 22 03/11/2022 COMP METAB OLIC PANEL glucose 129 mg/dL 70-120 high Not Available [facility] ([facility]) [address] , [place], [address], 03/11/2022 09:45:31 03/11/20 22 03/11/2022 COMP METAB OLIC PANEL BUN 29 mg/dL 7-18 high Not Available [facility] ([facility]) [address] [place], [address], 03/11/2022 09:45:31 03/11/20 22 03/11/2022 COMP METAB OLIC PANEL creatinine 1.4 mg/dL 0.6-1. 3 high Not Available [facility] ([facility]) [address] [place], [address], 03/11/2022 09:45:31 03/11/20 22 03/11/2022 COMP METAB OLIC PANEL glomerular filtration rate 56 mlper min 60- low Not Available [facility] ([facility]) [address], [place], [address], 03/11/2022 09:45:31 03/11/20 22 03/11/2022 COMP METAB OLIC PANEL total protein 7.5 g/dL 6.4-8. 2 Not Available [facility] ([facility]) [address] , [place], [address], 03/11/2022 09:45:31 03/11/20 22 03/11/2022 COMP METAB OLIC PANEL albumin 3.3 g/dL 3.4-5. 0 low Not Available [facility] ([facility]) [address] , [place], [address], 03/11/2022 09:45:31 03/11/20 22 03/11/2022 COMP METAB OLIC PANEL globulin 4.2 Not Available [facility]) [address] , [place], [address], 03/11/2022 09:45:31 03/11/20 22 03/11/2022 COMP METAB OLIC PANEL alb/glob ratio 0.8 0.7-2 Not Available [facility] ([facility]) [address] , [place], [address], 03/11/2022 09:45:31 03/11/20 22 03/11/2022 COMP METAB OLIC PANEL calcium 9.2 mg/dL 8.5-10 .5 Not Available [facility] ([facility]) [address] , [place], [address], 03/11/2022 09:45:31 03/11/20 22 03/11/2022 COMP METAB OLIC PANEL bilirubin total 0.91 mg/dL 0.10-1 .00 Not Available [facility] ([facility]) [address], [place], [address], 03/11/2022 09:45:31 03/11/20 22 03/11/2022 COMP METAB OLIC PANEL AST (SGOT) 19 U/L 0-37 Not Available [facility] ([facility]) [address], [place], [address], 03/11/2022 09:45:31 03/11/20 22 03/11/2022 COMP METAB OLIC PANEL ALT (SGPT) 26 U/L 0-65 Not Available [facility] ([facility]) [address], [place], [address], 03/11/2022 09:45:31 03/11/20 22 03/11/2022 COMP METAB OLIC PANEL alk phosphatase 86 U/L 46-116 Not Available [facility] ([facility]) [address], [place], [address], 03/11/2022 09:45:31 02/17/20 22 01/06/2022 , cirilo puentes No observ ation record ed. [email or web address] [facility] (Med Record) [address], [place], [address], 02/16/2022 10:46:24 Result Notes None recorded. Medical Equipment None Reported. Allergies Allergen ID Allergen Name Allergen Category Reaction Reaction Severity Criticality Documentation Date Start Date Code Code System Note Provider Name and Address Organization Details Recorded Time 63364 codeine medicatio n Not available Not available Not available 02/10/2022 2670 [facility] [place] [facility] [place] [facility] [place] 10:03:45 Medications Name Sig Start Date Stop Date Status Note LastModified by Organization Details LastModified Time metformin 500 mg tablet TAKE 1 TABLET BY MOUTH TWICE DAILY WITH A MEAL 02/10 completed Not Available Not Available Not Available meloxicam 15 mg tablet TAKE 1 TABLET BY MOUTH ONCE DAILY active Not Available Not Available No t Available lisinopril 20 mg tablet TAKE 1 TABLET BY MOUTH ONCE DAILY active Not Available Not Available No t Available gabapentin 400 mg capsule TAKE 1 CAPSULE BY MOUTH TWICE DAILY active Not Available Not Available No t Available chlorthalid one 25 mg tablet TAKE 1 TABLET BY MOUTH ONCE DAILY active Not Available Not Available No t Available meloxicam 7.5 mg tablet TAKE 1 TABLET BY MOUTH ONCE DAILY 02/10 completed Not Available Not Available Not Available oxycodone-a cetaminophe n 5 mg-325 mg tablet TAKE 1 TABLET BY MOUTH EVERY 6 HOURS NEEDED FOR SEVERE PAIN 7-10 PAIN SCALE active Not Available Not Available No t Available amitriptyli ne 25 mg tablet TAKE 1 TABLET BY MOUTH ONCE DAILY AT BEDTIME active Not Available Not Available No t Available metformin 1,000 mg tablet TAKE 1 TABLET BY MOUTH TWICE DAILY active Not Available Not Available No t Available lisinopril 10 mg tablet TAKE 1 TABLET BY MOUTH ONCE DAILY 02/10 completed Not Available Not Available Not Available gabapentin 300 mg capsule TAKE 1 CAPSULE BY MOUTH TWICE DAILY 02/10 completed Not Available Not Available Not Available omeprazole 20 mg capsule,del ayed release Take 1 capsule every day by oral route for 90 days. active Not Available Not Available No t Available gabapentin 100 mg capsule TAKE 1 CAPSULE BY MOUTH TWICE DAILY FOR 30 DAYS 02/10 completed Not Available Not Available Not Available ibuprofen 600 mg tablet TAKE 1 TABLET BY MOUTH EVERY 6 HOURS NEEDED FOR MODERATE PAIN 4-6 PAIN SCALE active Not Available Not Available No t Available Trulicity 0.75 mg/0.5 mL subcutaneou s pen injector INJECT 1 SYRINGE SUBCUTANE OUSLY ONCE A WEEK DIRECTED active Not Available Not Available No t Available Vitals Date Recorded Body weight Body mass index (BMI) Body height Body temperature Oxygen saturation Oxygen saturation in Arterial blood by Pulse oximetry Heart rate Systolic blood pressure Diastolic blood pressure Provider Name and Address Organization Details Last Updated DateTime 2 276048. 86 g 56.8 kg/m2 177.8 cm 97.7 [degF] 100 % 100 % 93 /min 164 mm[Hg] 100 mm[Hg] Alejandra woods [place] - [facility] 2 10:03:30 Date Recorded Body height Body mass index (BMI) Body weight Body temperature Oxygen saturation Oxygen saturation in Arterial blood by Pulse oximetry Heart rate Systolic blood pressure Diastolic blood pressure Provider Name and Address Organization Details Last Updated DateTime 2 177.8 cm 57.9 kg/m2 549590. 52 g 97.7 [degF] 99 % 99 % 92 /min 158 mm[Hg] 94 mm[Hg] [facility] 09:31:28 Date Recorded Body height Body mass index (BMI) Body weight Body temperature Oxygen saturation Oxygen saturation in Arterial blood by Pulse oximetry Heart rate Systolic blood pressure Diastolic blood pressure Provider Name and Address Organization Details Last Updated DateTime 2 177.8 cm 56.7 kg/m2 092970. 78 g 97.5 [degF] 99 % 99 % 92 /min 164 mm[Hg] 84 mm[Hg] Alejandra [facility]ly [facility] & [place] 2 10:22:51 Social History None recorded. Functional Status Question Answer Note LastModified by Organizat ion Details LastModified Time Do you use any illicit or recreational drugs? No Information not available 02/10/2022 What is your level of alcohol consumption? None Information not available 02/10/2022 Mental Status None recorded. Family History Relationship Description Onset Age of this Age Resolved Age Notes LastModified by Organization Details LastModified Time Mother Diabetes mellitus [email or web address] Not available 12/2021 10:05:22 Father Heart disease [email or web address] Not available 12/2021 10:05:32 Medical History Condition Response Diabetes Y Kidney Stones Y Hypertension Y Past Encounters Encounter ID Performer Location Encounter Start Date Encounter Closed Date Diagnosis/Indication Diagnosis SNOMED-CT Code Diagnosis ICD10 Code Diagnosis Note [id number] Nitza Riley NP [facility] [address] [address] 02/10/2022 09:55:56 02/10/2022 10:31:03 Cholelithiasis without obstruction 65753906 K80.20 - HIDA scan ordered- Referral placed to general surgery, Dr Manuel Euceda 02763565 R12 - start taking omeprazole once daily- plan for EGD if no improvemen t Morbid obesity 972328145 E66.01 - referral placed to bariatric surgeon [id number] Sada Jackson MD [facility] General Surgery [address] [place] [address] [address] [place] [address] 02/16/2022 09:06:02 02/16/2022 10:00:15 Cholelithiasis without obstruction 41974954 K80.20 Abdominal pain 25231031 R10.9 Patient does have gallstones and seems to have a history at least of biliary colic. I am uncertain if his current symptoms are related as the pain does seem atypical. I have recommende d proceeding with the ordered HIDA scan to better determine if his symptoms are reproducib le. I anticipate that the ejection fraction will be low given the cholelithi asis. We did discuss robotic assisted laparoscop ic cholecyste ctomy if it would be warranted. EGD may also be considered given the left upper quadrant symptoms. Risks and benefits of cholecyste ctomy were discussed. These included bleeding, infection, damage to surroundin g structures and anesthetic risks related to BMI. I will contact patient with the results for further surgical planning. Body mass index 40+ - severely obese 272538285 Z68.43 [id number] Sada Jackson MD [facility] General Surgery [address] [place] [address] [address] [place] [address] 03/23/2022 10:09:39 03/23/2022 10:44:53 Calculus of gallbladder with cholecystitis 53983506 K80.10 Stable postop. He may return to physical activity without restrictio n at 2 weeks postoperat ively. I suspect he may have some gastropare sis given the findings of undigested food. At present he does not feel symptomati c, can follow-up as needed. Health Concerns Section Related Observation LastModified by Organization Detai ls LastModified Time None Recorded Concern Status LastModified by Organization Details LastModified Time None Recorded Advance Directives Directive None Recorded Payers Insurance Date Sequence Insurance Name Policy Number Policy Talbert Covered Member ID Talbert Member ID Guarantor Name 04/29/2022 1 [employer] [facility] ([facility]) Indira Diaz [id number] Álvaro Diaz Notes Date Note Type Note Provider Name and Address Organization Details Recorded Time 02/10/2022 text/html Patient is a 56 year old male referred to our office from Dr. Gardner at [facility]. Reports recurrent upper abdominal pain, nausea and intermittent vomiting. Denies hematemesis. Recently had abdominal ultrasound which revealed gallstones. Reports he does have heartburn which he takes Pepcid for intermittently. Nitza Riley NP [address], [place], [address], [facility] & [place] 02/10/2022 11:05:54 02/16/2022 text/html 56-year-old man referred for gallstones. He has had some occasional right upper quadrant pain which does not seem to be food related. This has occurred intermittently in the past. Patient states that previously he has had nausea and vomiting which may be related. This has not occurred recently. He has had diffuse abdominal pain, more in the left upper quadrant over the past several months. The pain is sharp and moderate to severe and occurs on an empty stomach. He underwent right upper quadrant ultrasound at [facility]. This shows gallstones without evidence of ductal dilation or cholecystitis. He does have fatty liver. He was referred to GI, HIDA scan has been ordered as they felt that his abdominal pain may be atypical for biliary colic. This has not been scheduled yet. Sada Jackson MD [address], [place], [address], [facility] & [place] 02/16/2022 15:05:18 03/23/2022 text/html One week status post robotic cholecystectomy and EGD. Patient had retained partially digested food in his stomach, pathology showed gallstones with chronic cholecystitis. He feels well overall. Sada Jackson MD [address], [place], [address], [facility] [place] 03/23/2022 11:34:52
--- NOTE | 2024-09-11 12:02 | XR_ITS ---
FINAL REPORT CLINICAL HISTORY: PAIN limp cant straighten out FINDINGS: LEFT KNEE 3 views of the left knee were obtained. There is no acute fracture or dislocation. There is moderate medial compartment joint space narrowing. Subchondral sclerosis is seen. There are osteophytes at the medial joint and undersurface of the patella. Soft tissues are unremarkable. IMPRESSION: No acute bony abnormality. Moderate changes of osteoarthritis at the medial compartment. Reviewed, Interpreted and Dictated by Meliton Lopez MD Transcribed by Gina Velazquez Authenticated and [facility]
== END 2024-09-11 23:59 | disposition home or self-care (01) ==
LOC: RAD 11:58
PROVIDERS: PCP Family Medicine; Visit Provider Family Medicine
DX: M17.11 Unilateral primary osteoarthritis, right knee (principal)
CPT/HCPCS: 73562

== ENCOUNTER 2024-10-24 16:43 | Emergency (ER) | payer OTHER, SELFPAY ==
--- OUTSIDE RECORDS SUMMARY | 2024-09-16 18:18 | XMS_ITS ---
Author Organization Kari Address [address] [place] [address] [place] [id number] Care Team Providers Care Philosophy Faculty Name Role Phone Percy, R Mariano Unavailable [phone] REASON FOR VISIT Test Results Medications Medication SIG (Take, Route, Fr equency, Duration) Notes Start Date End Date Status Lisinopril 20 MG 1/2 tablet Orally once a day Active Encounters Encounter Location Date Provider Diagnosis Maryjane [address] [place] [address] [address] [place] [id number] 09/16/2024 Brendan Greer HBP (high blood pressure) I10 ; Fatigue, unspecified type R53.83 and Snoring R06.83 Assessments Encounter Date Diagnosis (ICD Code) Assessment Notes Treatment Notes Treatment Clinical Notes Section Notes 09/16/2024 HBP (high blood pressure) (ICD-10 - I10) 09/16/2024 Fatigue, unspecified type (ICD-10 - R53.83) 09/16/2024 Snoring (ICD-10 - R06.83) Plan Of Treatment Medication Medication Name Sig Start Date Stop Date Notes Lisinopril 20 MG 1/2 tablet Orally once a day Pending Test Test Name Order Date sleep study 09/16/2024 Next Appt Details Provider Name:Brendan Martinez, 11/08/2024 11:00:00 AM, [address], [address], [place], [id number], Progress Notes * LONNIE DIAZDOB:1965 (59 yo M)Acc No.[id number]:09/16/2024 Patient: Helga LONNIE COBOS :1965 A ge:59 Y S ex:Male Address:[address] [place] [address], [place] [address] * Refills Decrease Lisinopril Tablet, 20 MG, Orally, 1/2 tablet, once a day Subjective: * Chief Complaints: * T est Results * Medical History: * Surgical History: * Hospitalization/Major Diagno stic Procedure: * Medications: Objective: * Vitals: * Physical Examination: Assessment: * Assessment: 1. H BP (high blood pressure) - I10 2 . F atigue, unspecified type - R53.83? 3. S noring - R06.83 Plan: * Treatment: 2. F atigue, unspecified type I maging: sleep study 3.?Snoring?Imaging: sleep study* at [facility] * Procedure Codes: * true * Date: Generated for Shelli newell/Gregory/Christina on: 0 10/24/2024 05:21 PM EDT
--- OUTSIDE RECORDS SUMMARY | 2024-09-18 11:35 | XMS_ITS ---
Author Organization [facility] [address] [facility] [address] [facility] [address] [place], [place] [address] Care Team Providers Care Category Manager Name Role Phone Percy, Brendan Quintana Unavailable [phone] REASON FOR VISIT due colonoscopy Encounters Encounter Location Date Provider Diagnosis Maryjane [address] [facility] [address] [facility] [address] [place] [id number] 09/18/2024 Brendan Greer Screening for colon cancer Z12.11 Assessments Encounter Date Diagnosis (ICD Code) Assessment Notes Treatment Notes Treatment Clinical Notes Section Notes 09/18/2024 Screening for colon cancer (ICD-10 - Z12.11) Plan Of Treatment Pending Test Test Name Order Date Cologuard 09/18/2024 Next Appt Details Provider Name:Brendan Breaux et, 11/08/2024 11:00:00 AM, [address] [place] [facility] [address] [facility], [address], [place], [place], [id number], Progress Notes * DAYA ISABELSHELLYDOB:1965 (59 yo M)Acc No.[id number]:09/18/2024 Patient: LONNIE DODD :1965 A ge:59 Y S ex:Male Address:[address] [place] [address], [address] Subjective: * Chief Complaints: * D ue colonoscopy * Medical History: * Surgical History: * Hospitalization/Major Diagno stic Procedure: * Medications: Objective: * Vitals: * Physical Examination: Assessment: * Assessment: 1. S creening for colon cancer - Z12.11 (Primary) Plan: * Treatment: * Procedure Codes: * true * Date: Generated for Shelli newell/Gregory/Christina on: 0 10/24/2024 05:21 PM EDT
--- OUTSIDE RECORDS SUMMARY | 2024-10-11 06:45 | XMS_ITS ---
[facility] Address [address] [facility] [address] [place] [id number] Care Team Providers Care Cafe Assistant Name Role Phone Brendan Greer Unavailable [phone] Allergies Allergen (clinical drug ingredient) Drug/Non Drug Allergy documented on EMR Reaction Allergy Type Onset Date Status codeine Codeine hives Drug Allergy Active Results Component Value Reference Range Notes PT/INR (in house) Reviewed date:10/11/2024 02:45:57 PM Interpretation: Performing Lab: Notes/Report: PT 25.8 INR 2.2 current dose 2.5mg TU; 5mg AOD new dose same next check 1 month REASON FOR VISIT 1 month Medications Medication SIG (Take, Route, Frequency, Duration) Notes Start Date End Date Status Zithromax Z-Dung 250 MG as directed Orally 08/08/19 Not-Taking metFORMIN HCl 1000 MG 1 tab(s) orally Tw o times a day; Duration: 30 days Active Chlorthalidone 25 MG 1/2 tab(s) orally o nce a day; Duration: 90 days Active Metoclopramide HCl 5 MG 1 tablet before meals Orally Twice a day 05/31/2024 Active Lisinopril 10 MG 1 tablet Orally once a day Active Warfarin Sodium 5 MG 1 tablet Orally Onc e a day; Duration: 90 days Active Amitriptyline HCl 25 MG 1 tab(s) orally once a day (at bedtime); Duration: 90 days Active Glimepiride 2 MG 1 tablet with breakfast or the first main meal of the day Orally Once a day Active Gabapentin 400 MG 1 cap(s) orally 2 times a day 10/11/2024 Active Meloxicam 15 MG 1 tab(s) Orally once daily Active Diphenoxylate-Atropine 2.5-0.025 MG 1 tab(s) Orally four times a day as needed 06/30/2023 Active Omeprazole Magnesium 20 MG 1 tab(s) oral ly once a day; Duration: 14 day(s) Active Vital Signs Blood pressure systolic 140 mm Hg 10/12/19 25 Blood pressure diastolic 70 mm Hg 025 Heart Rate 101 /min 10/11/2024 Height 70.5 in 10/11/2024 Weight 468.4 lbs 10/11/2024 BMI 66.25 kg/m2 10/11/2024 Encounters Encounter Location Date Provider Diagnosis [place] [address] [facility] [address] [place], [place] [id number] 10/11/2024 Brendan Greer Diabetic polyneuropa thy associated with type 2 diabetes mellitus E11.42 ; HBP (high blood pressure) I10 ; Knee pain M25.569 ; Morbid obesity E66.01 and custodial (current) use of anticoagulants Z79.01 Assessments Encounter Date Diagnosis (ICD Code) Assessment Notes Treatment Notes Treatment Clinical Notes Section Notes 10/11/2024 Diabetic polyneuropathy associated with type 2 diabetes mellitus (ICD-10 - E11.42) 10/11/2024 HBP (high blood pressure) (ICD-10 - I10) 10/11/2024 Knee pain (ICD-10 - M25.569) He will contact his insurance company to see if GLP-1s are covered 10/11/2024 Morbid obesity (ICD-10 - E66.01) He will contact his insurance company to see if any GLP-1's are covered 10/11/2024 buttermaker continuous churn (current) use of anticoagulants (ICD-10 - Z79.01) Plan Of Treatment Medication Medication Name Sig Start Date Stop Date Notes Lisinopril 10 MG 1 tablet Orally once a day Gabapentin 400 MG 1 cap(s) orally 2 times a day 10/11/2024 Treatment Notes Assessment Notes Knee pain He will contact his insurance company to see if GLP-1s are covered Morbid obesity He will contact his insurance company to see if any GLP-1's are covered Next Appt Details Follow Up: 4 Weeks, Reason: Provider Name:Brendan Martinez, 11/08/2024 11:00:00 AM, [address], [place], [place], [id number], Progress Notes * LONNIE DIAZDOB:1965 (59 yo M)Acc No.[id number]:10/11/2024 Progress Notes Patient: LONNIE DODD Provider: Brendan Greer M.D. :1965 A ge:59 Y S ex:Male Date:10/11/2024 Address:[address] [place] [address] Subjective: * Chief Complaints: * 1 . 1 month. * HPI: H ematology: 59 year old male presents with c/o PT/INR d ue for PT/INR.? R heumatology: He had a consultation with Dr. Pimentel regarding his arthritis and knee pain. Apparently Dr. Pimentel discouraged injections and suggested he needed surgery but would have to lose a considerable amount of weight before considering surgery. C ardiology: He has decreased his lisinopril to 10 mg daily due to his recent renal function studies. States his blood pressure has remained stable on the lower dose. C onstitutional: He has not had his sleep study done as yet. Waiting to hear from the hospital. * ROS: D ERMATOLOGY: no R yanira. [...] Procedure: H MH - Blood Clots 03/30/2023, [facility] - Diarrhea 06/29/2023, [facility] - Diarrhea 07/05/2023. * Family History: F ather: , diagnosed with Hypertension, Heart Disease. M other: , diagnosed with Diabetes. Mother from renal failure Older brother with diabetes Younger brother with OK. * Social History: C URRENT TOBACCO USE: [...] day Orally Once a day , Taking Warfarin Sodium 5 [...] tab(s) orally once a day , Taking Lisinopril 20 MG Tablet 1/2 tablet Orally once a day , Not-Taking Zithromax Z-Dung 250 MG Tablet as directed Orally , Medication List reviewed and reconciled with the patient * Allergies: C odeine: hives. Objective: * Vitals: W t: 468.4, Temp: 98.7, BP: 140/70, HR: 101, Nurse: maddie, Ht: 70.5, BMI:66.25. * Examination: G eneral Examination: General Appearance: N AD. weight gain noted. H eart: R SR. L ungs: c lear to auscultation. Assessment: * Assessment: 1. K nee pain - M25.569 (Primary) 2 . D iabetic polyneuropathy associated with type 2 diabetes mellitus - E11.42 3 . H BP (high blood pressure) - I10 ? 4 . M orbid obesity - E66.01 5 . L tracee term (current) use of anticoagulants - Z79.01 Plan: * Treatment: 2. D iabetic polyneuropathy associated with type 2 diabetes mellitus Refill Gabapentin Capsule, 400 MG, 1 cap(s), orally, 2 times a day, 60, Refills 2. 3. H BP (high blood pressure) Change Lisinopril Tablet, 10 MG, 1 tablet, Orally, once a day, 90, Refills 1. 4. M orbid obesity Notes: He will contact his insurance company to see if any GLP-1's are covered * Labs: * L ab: PT/INR (in house) (Collection Date & Time - 10/11/2024) Value Reference Range P T 25.8 * I NR 2.2 * c urrent dose 2.5mg TU; 5mg AOD * n ew dose same * n ext check 1 month * Destiny Song 10/11/2024 10:4 2:45 AM EDT > Provider reviewed results while patient in office. * Procedure Codes: 8 5610 PROTHROMBIN TIME, Modifiers: QW , [address] CAPILLARY BLOOD DRAW, 1036F TOBACCO NON-USER, 3077F SYST BP = 140 MM HG6 IT, 3078F DIAST BP < 80 MM HG * Follow Up: 4 Weeks * Images: Billing Information: * Visit Code: 71655 Office Visit, Est Pt., Level 3. * Procedure Codes: 26035 PROTHROMBIN TIME. Modifiers: QW 41935 CAPILLARY BLOOD DRAW. 1036F TOBACCO NON-USER. 3077F SYST BP = 140 MM HG6 IT. 3078F DIAST BP < 80 MM HG. * Electronic signature of Brendan Greer MD on 10/24/2024 at 05:20 PM EDT Sign off status: Pending * Provider: Brendan Greer M.D. Date: 10/11/2024 Generated for Shelli newell/Gregory/Irinaitting on: 10/24/2024 05:20 PM EDT History and Physical Notes * HPI (History of Present Illness) Category Sub-Category Detail Notes Category Not es Cardiology He has decrease d his lisinopril to 10 mg daily due to his recent renal function studies. States his blood pressure has remained stable on the lower dose. Constitutional He has not gaona d his sleep study done as yet. Waiting to hear from the hospital. Rheumatology He had a consul tation with Dr. Pimentel regarding his arthritis and knee pain. Apparently Dr. Pimentel discouraged injections and suggested he needed surgery but would have to lose a considerable amount of weight before considering surgery. Hematology PT/INR due for PT/INR Examination Category Sub-Category Detail Notes Category Not es General Examination Heart: RSR Lungs: clear to auscultatio n General Appearance: NAD. weight gain not ed
[2024-10-24 16:57] VITALS: BP 181/87; PULSE 102; RESP 18; TEMP 36.7; O2SAT 98; BMI 63.8
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
--- OUTSIDE RECORDS SUMMARY | 2024-10-24 17:21 | XMS_ITS | Data Portability ---
Author Organization [facility] & DREW Ray ADMIN Address [address] [place] [address] Care Team Providers Care Rotating Equipment Specialist Name Role Phone HEBER GARDNER JR Referring Provider [phone] HECTOR WISE Primary Care Provider [phone] Assessment No assessment recorded. Plan of Treatment Reminders Order Date Submit Date Provider Last Modified By Organization Details Last Modified Time Details Appointments None recorded. Lab None recorded. Referral bariatric surgery referral 2021 MELCHOR White, [address], [address], [place], [address], 09:01:01 general surgeon referral 2021 [email or web address] Sada Jackson, [address], [address], [place], [address], 09:09:37 Procedures None recorded. Surgeries None recorded. Imaging NM, hepatobili mat scan 2021 [facility] (Centralized Scheduling), [address], [place], [address], 15:21:23 Medication Orders omeprazole 20 mg capsule,de layed release 2021 [facility], [address], [place], [address], 11:05:52 Patient TargetsNo targets recorded. Patient Instructions Encounter Date Encounter Id Patient Instructions Last Modified By Organization Details Last Modified Time 02/10/2022 [id number] low-fat diet for gallbladder disease: care instructions [email or web address] Not available 02/10/2022 10:14:44 Reason for Referral General Surgeon Referral for Cholelithiasis without obstruction Referring Physician: Nitza Riley [facility], Encounter Date: 02/10/2022 Bariatric Surgery Referral f or Morbid obesity Referring Physician: Nitza Riley [facility], Encounter Date: 02/10/2022 Results Created Date Observation Date Name Description Value Unit Range Abnormal Flag Note LastModifiedBy Organization Detail LastModifiedTime 03/11/2003/11/2022 CBC AUTO NO DIFF (HEMO GRAM) WBC 6.8 K/uL 4.0-10 .5 Not Available [facility] ([facility]) [address] , [place], [address], 03/11/2022 09:14:13 03/11/20 22 03/11/2022 CBC AUTO NO DIFF (HEMO GRAM) RBC 5.7 M/mm3 4.7-6. 1 Not Available [facility] ([facility]) [address] , [place], [address], 03/11/2022 09:14:13 03/11/20 22 03/11/2022 CBC AUTO NO DIFF (HEMO GRAM) HGB 17.0 gm/dL 13.5-1 8.0 Not Available [facility] ([facility]) [address] , [place], [address], 03/11/2022 09:14:13 03/11/20 22 03/11/2022 CBC AUTO NO DIFF (HEMO GRAM) HCT 50.5 % 42.0-5 2.0 Not Available [facility] ([facility]) [address] [place], [address], 03/11/2022 09:14:13 03/11/20 22 03/11/2022 CBC AUTO NO DIFF (HEMO GRAM) MCV 89.4 fL 78-100 Not Available [facility] ([facility]) [address], [place], [address], 03/11/2022 09:14:13 03/11/20 22 03/11/2022 CBC AUTO NO DIFF (HEMO GRAM) MCH 30.1 pg 27-31 Not Available [facility] ([facility]) [address], [place], [address], 03/11/2022 09:14:13 03/11/20 22 03/11/2022 CBC AUTO NO DIFF (HEMO GRAM) MCHC 33.7 g/dL 32-36 Not Available [facility] ([facility]) [address], [place], [address], 03/11/2022 09:14:13 03/11/20 22 03/11/2022 CBC AUTO NO DIFF (HEMO GRAM) RDW 13.9 % 11.5-1 4.0 Not Available [facility] ([facility]) [address] , [place], [address], 03/11/2022 09:14:13 03/11/20 22 03/11/2022 CBC AUTO NO DIFF (HEMO GRAM) platelet count 260 K/uL 150-45 0 Not Available [facility] ([facility]) [address] , [place], [address], 03/11/2022 09:14:13 03/11/20 22 03/11/2022 CBC AUTO NO DIFF (HEMO GRAM) manual differential NO Not Available [facility] ([facility]) [address] , [place], [address], 03/11/2022 09:14:13 03/11/20 22 03/11/2022 COMP METAB OLIC PANEL sodium 137 mmol/ L 136-14 5 Not Available [facility] ([facility]) [address] , [place], [address], 03/11/2022 09:45:31 03/11/20 22 03/11/2022 COMP METAB OLIC PANEL potassium 4.0 mmol/ L 3.6-5. 0 Not Available [facility] ([facility]) [address] , [place], [address], 03/11/2022 09:45:31 03/11/20 22 03/11/2022 COMP METAB OLIC PANEL chloride 100 mmol/ L 98-107 Not Available [facility] ([facility]) [address] , [place], [address], 03/11/2022 09:45:31 03/11/20 22 03/11/2022 COMP METAB OLIC PANEL carbon dioxide 28.4 mmol/ L 21.0-3 2.0 Not Available [facility] ([facility]) [address] , [place], [address], 03/11/2022 09:45:31 03/11/20 22 03/11/2022 COMP METAB OLIC PANEL anion gap 12.6 Not Available [facility] ([facility]) [address] , [place], [address], 03/11/2022 09:45:31 03/11/20 22 03/11/2022 COMP METAB OLIC PANEL glucose 129 mg/dL 70-120 high Not Available [facility]) [address] [place], [address], 03/11/2022 09:45:31 03/11/20 22 03/11/2022 COMP METAB OLIC PANEL BUN 29 mg/dL 7-18 high Not Available [facility] ([facility]) [address] [place], [address], 03/11/2022 09:45:31 03/11/20 22 03/11/2022 COMP METAB OLIC PANEL creatinine 1.4 mg/dL 0.6-1. 3 high Not Available [facility] ([facility]) [address], [place], [address], 03/11/2022 09:45:31 03/11/20 22 03/11/2022 COMP METAB OLIC PANEL glomerular filtration rate 56 mlper min 60- low Not Available [facility] ([facility]) [address], [place], [address], 03/11/2022 09:45:31 03/11/20 22 03/11/2022 COMP METAB OLIC PANEL total protein 7.5 g/dL 6.4-8. 2 Not Available [facility] ([facility]) [address], [place], [address], 03/11/2022 09:45:31 03/11/20 22 03/11/2022 COMP METAB OLIC PANEL albumin 3.3 g/dL 3.4-5. 0 low Not Available [facility] ([facility]) [address], [place], [address], 03/11/2022 09:45:31 03/11/20 22 03/11/2022 COMP METAB OLIC PANEL globulin 4.2 Not Available [facility] ([facility]) [address], [place], [address], 03/11/2022 09:45:31 03/11/20 22 03/11/2022 COMP METAB OLIC PANEL alb/glob ratio 0.8 0.7-2 Not Available [facility] ([facility]) [address], [place], [address], 03/11/2022 09:45:31 03/11/20 22 03/11/2022 COMP METAB OLIC PANEL calcium 9.2 mg/dL 8.5-10 .5 Not Available [facility] ([facility]) [address], [place], [address], 03/11/2022 09:45:31 03/11/20 22 03/11/2022 COMP METAB OLIC PANEL bilirubin total 0.91 mg/dL 0.10-1 .00 Not Available [facility] ([facility]) [address], [place], [address], 03/11/2022 09:45:31 03/11/20 22 03/11/2022 COMP METAB OLIC PANEL AST (SGOT) 19 U/L 0-37 Not Available [facility] ([facility]) [address], [place], [address], 03/11/2022 09:45:31 03/11/20 22 03/11/2022 COMP METAB OLIC PANEL ALT (SGPT) 26 U/L 0-65 Not Available [facility] ([facility]) [address], [place], [address], 03/11/2022 09:45:31 03/11/20 22 03/11/2022 COMP METAB OLIC PANEL alk phosphatase 86 U/L 46-116 Not Available [facility] ([facility]) [address], [place], [address], 03/11/2022 09:45:31 02/17/20 22 01/06/2022 , cirilo puentes No observ ation record ed. [email or web address] [facility] (Med Record) [address], [place], [address], 02/16/2022 10:46:24 Result Notes None recorded. Medical Equipment None Reported. Allergies Allergen ID Allergen Name Allergen Category Reaction Reaction Severity Criticality Documentation Date Start Date Code Code System Note Provider Name and Address Organization Details Recorded Time 12471 codeine medicatio n Not available Not available Not available 02/10/2022 2670 RxNorm [facility] [place] - [place] & [place] 10:03:45 Medications Name Sig Start Date Stop [...] blood by Pulse oximetry Heart rate Systolic And Diastolic Provider Name and Address Organization Details Last Updated DateTime 2 393556. 86 g 56.8 kg/m2 177.8 cm 97.7 [degF] 100 % 100 % 93 /min 164/100 mm[Hg] Alejandra woods [place] - LPNT [facility] 2 10:03:30 Date Recorded Body height Body mass index (BMI) Body weight Body temperature Oxygen saturation Oxygen saturation in Arterial blood by Pulse oximetry Heart rate Systolic And Diastolic Provider Name and Address Organization Details Last Updated DateTime 2 177.8 cm 57.9 kg/m2 262454. 52 g 97.7 [degF] 99 % 99 % 92 /min 158/94 mm[Hg] Alejandra Dunbar peggy [place] - LPNT [facility] & [place] 2 09:31:28 Date Recorded Body height Body mass index (BMI) Body weight Body temperature Oxygen saturation Oxygen saturation in Arterial blood by Pulse oximetry Heart rate Systolic And Diastolic Provider Name and Address Organization Details Last Updated DateTime 2 177.8 cm 56.7 kg/m2 323852. 78 g 97.5 [degF] 99 % 99 % 92 /min 164/84 mm[Hg] [facility] - [facility] & [place] 2 10:22:51 Social History None recorded. Functional Status Question Answer Note LastModified by [employer] ion Details LastModified Time Do you use [...] SNOMED-CT Code Diagnosis ICD10 Code Diagnosis Note [id number] Nitza Riley NP [facility] [address] [address] 02/10/2022 09:55:56 02/10/2022 10:31:03 Cholelithiasis without obstruction 12518417 K80.20 - HIDA scan ordered- Referral placed to general surgery, Dr Jackson Heartburn [id number] R12 - start taking omeprazole once daily- plan for EGD if no improvemen t Morbid obesity 786957784 E66.01 - referral placed to bariatric surgeon [id number] Sada Jackson MD [facility] General Surgery [address] [place] [address] [address] [place] [address] 02/16/2022 09:06:02 02/16/2022 10:00:15 Cholelithiasis without obstruction 15596780 K80.20 Abdominal pain 26848688 R10.9 Patient does have gallstones and seems [...] Body mass index 40+ - severely obese 475261266 Z68.43 [id number] Sada Jackson MD [facility] General Surgery [address] [place] [address],[facility] [address] [place] [address] 03/23/2022 10:09:39 03/23/2022 10:44:53 Calculus of gallbladder with cholecystitis [id number] K80.10 Stable postop. He may return to [...] Member ID Guarantor Name 04/29/[address] [facility]) Indira Diaz [id number] Álvaro Diaz Notes Date Note Type Note Provider Name and Address Organization Details Recorded Time 02/10/2022 text/html Patient is a 56 year old male referred to our office from Dr. Gardner at [facility]. Reports recurrent upper abdominal pain, nausea and intermittent vomiting. Denies hematemesis. Recently had abdominal ultrasound which revealed gallstones. Reports he does have heartburn which he takes Pepcid for intermittently. Nitza Riley NP [address], [place], [address], [facility] & [place] 02/10/2022 11:05:54 02/16/2022 text/html 56-year-old man referred [...] He underwent right upper quadrant ultrasound at [facility]. This shows gallstones without evidence of ductal dilation or cholecystitis. He does have fatty liver. He was referred to GI, HIDA scan has been ordered as they felt that his abdominal pain may be atypical for biliary colic. This has not been scheduled yet. Sada Jackson MD [address], [place], [address], [facility] & [place] 02/16/2022 15:05:18 03/23/2022 text/html One week status post robotic cholecystectomy and EGD. Patient had retained partially digested food in his stomach, pathology showed gallstones with chronic cholecystitis. He feels well overall. Sada Jackson MD [address], [place], [address], [facility] & [place] 03/23/2022 11:34:52
--- NOTE | 2024-10-24 17:23 | ED_ITS ---
<Statement entered by Sinai Camacho DO - 10/25/24 09:05> I was consulted by the NAHOMI, and we discussed the complexity of problems being addressed. I approve the treatment and management plan for this patient's care in the emergency department, thus performing a substantial portion of the medical decision making. Sinai Camacho DO Discharge Plan Disposition Patient Disposition: Home, Self-Care Prescriptions Prescriptions: New amoxicillin-pot clavulanate 875-125 mg tablet 1 tab PO BID Qty: 20 0RF No Action metformin 1,000 mg tablet 1,000 mg PO BIDWMEAL amitriptyline 25 mg tablet 25 mg PO HS gabapentin 400 mg capsule 400 mg PO BID lisinopril 10 mg tablet 20 mg PO DAILY meloxicam 15 mg tablet 15 mg PO DAILY Patient Comments: TAKE 1 TABLET BY MOUTH ONCE DAILY chlorthalidone 25 mg Tablet 12.5 mg PO DAILY omeprazole 20 mg Tablet,Delayed Release (Dr/Ec) 20 mg PO DAILY Trulicity 1.5 mg/0.5 mL pen injector 1.5 mg SQ WEEKLY Eliquis DVT-PE Treat 30D Start 5 mg (74 tabs) tablets,dose pack 5 mg PO BID Qty: 74 0RF ondansetron HCl 4 mg tablet 4 mg PO Q8H PRN (Reason: nausea and vomiting) Qty: 15 0RF nitazoxanide 500 mg tablet 500 mg PO BID 3 Days Qty: 6 0RF Rx Instructions: must administer with a meal/food Referrals Follow up/Referrals: Provider,Referral, MD [Primary Care Provider, Medical] - See instructions Clinical Impressions Clinical Impression: Dental abscess Stand Alone Forms Stand Alone Forms: Work/School Release Instructions Patient Instructions: DI for Tooth Abscess Print Language Print Language: Romansh Discharge ED Provider: Sinai Camacho General Adult HPI General Chief complaint: PAIN Stated complaint: right side tooth pain Time Seen by Provider: 10/24/24 17:14 Mode of Arrival: Ambulatory Description of Symptoms (Recalled from ER Triage Doc. by RN): Pt presents for evaluation of right sided facial pain that started yesterday. Pt states he has an abscessed tooth History of Present Illness HPI narrative: 59-year-old male presents to the ED today for the complaint of right sided facial pain and swelling that started yesterday. He says that he woke up with worsening swelling today. He does have an abscessed tooth that has a hole in it that he needs to have removed. He says he is having all of his teeth removed. He has no fevers, chills, nausea or vomiting. He denies any other symptoms at this time. He has concern for the swelling in his face. Related Data Home Medications ?Medication ?Instructions ?Recorded ?Confirmed amitriptyline 25 mg tablet 25 mg PO HS MOOD 01/26/22 0 09/20/24 gabapentin 400 mg capsule 400 mg PO BID Pain 01/26/22 09/20/24 lisinopril 10 mg tablet 20 mg PO DAILY Hypertension 01/26/22 09/20/24 metformin 1,000 mg tablet 1,000 mg PO BIDWMEAL Diabete s 01/26/22 09/20/24 chlorthalidone 25 mg tablet 12.5 mg PO DAILY Fluid 09/20/24 dulaglutide 1.5 mg/0.5 mL 1.5 mg SQ WEEKLY Diabetes 09/20/24 subcutaneous pen injector (Trulicity) meloxicam 15 mg tablet 15 mg PO DAILY Pain 03/25/23 09/20/24 omeprazole 20 mg tablet,delayed 20 mg PO DAILY Acid Re flux 03/25/23 09/20/24 release Previous Rx's ?Medication ?Instructions ?Recorded apixaban 5 mg (74 tabs) tablets in 5 mg PO BID #74 tab s 03/26/23 a dose pack ([email or web address] DVT-PE Treat 30D Start) ondansetron HCl 4 mg tablet 4 mg PO Q8H PRN nausea and 03/27/23 vomiting #15 tabs nitazoxanide 500 mg tablet 500 mg PO BID 3 days #6 tab s 07/05/23 amoxicillin 875 mg-potassium 1 tab PO BID #20 tabs clavulanate 125 mg tablet Allergies Allergy/AdvReac Type Severity Reaction Status Date / Time codeine Allergy Verified 09/20/24 11:13 [facility] Disclaimer: The information contained in this section may have been updated after the patient was seen, as this information can be updated by other users. Medical History GERD (gastroesophageal reflux disease) Morbid obesity Neuropathy Gastroparesis Hypertension Diabetes mellitus, type 2 Surgical History History of cholecystectomy Family History Other Family history of diabetes mellitus type II Social History Smoking Status: Never smoker alcohol intake: never current occupational status: other Travel in the last 8 weeks?: None Have you lived/traveled outside US in past 30 days?: No Contact w/someone who lives/traveled outside US past 30 days?: No Exposure to someone with infectious disease in past 14 days?: No Do you have a fever (greater than 100.4 F or 38 C)?: No Have you tested positive for COVID-19?: No Exposed to someone with COVID-19 in past 14 days?: No Do you have a sore throat?: No Do you have a cough?: No Do you have any weakness?: No Do you have any diarrhea?: No Are you experiencing any unusual bleeding?: No Do you have any muscle aches/pain?: No Do you have any abdominal pain?: No Are you experiencing loss of taste or smell?: No Other Medical History Have you received the Flu Vaccine for this season: No Have you received the Pneumonia Vaccine: No ROS Obtained: Yes Systems reviewed as appropriate & no additional complaints except as documented Constitutional Constitutional: Reports as per HPI Physical Exam General General appearance: alert and in no apparent distress Head Head exam: other (Facial swelling to the right) Eye Eye exam: Present PERRL and EOMI ENT ENT exam: Present normal oropharynx (Facial swelling on the right of the face) and mucous membranes moist Neck Neck exam: Present full ROM and trachea midline Respiratory Respiratory exam: Present normal lung sounds bilaterally Cardiovascular Cardiovascular exam: Present regular rate, normal rhythm, normal heart sounds, +S1 and +S2 Extremities Exam Extremities exam: Present normal capillary refill Neurological Exam Neurological exam: Present alert and oriented X3 Skin Skin exam: Present warm, dry and intact Medical Decision Making Medical Records Screening: Per USPSTF and CDC recommendations, given the prevalence of disease in our region, it is our hospital?s policy to screen for HIV and viral Hepatitis for all patients aged 18 and over and those with ongoing risk factors. Alex Inquiry Pt receiving controlled substance: No Alex was queried for this patient: No Vital Signs: 10/24/24 16:57 10/24/24 17:26 10/24/24 19:12 Temperature 98.0 F 98.3 F Temperature Source Temporal Artery Scan Pulse Rate 102 H 88 Pulse Rate [Right] 102 H Respiratory Rate 18 18 Blood Pressure 168/86 H 136/86 Blood Pressure [Right Arm] 181/87 H Blood Pressure Mean [Right Arm] 118 Blood Pressure Source [Right Arm] Automatic Cuff Blood Pressure Position Blood Pressure Position [Right Arm] Sitting 02 Sat by Pulse Oximetry 98 98 98 Oxygen Delivery Method Room Air Room Air 10/24/24 19:30 10/24/24 21:12 Temperature 98.9 F Temperature Source Oral Pulse Rate 86 80 Pulse Rate [Right] Respiratory Rate 16 Blood Pressure 172/100 H 148/74 H Blood Pressure [Right Arm] Blood Pressure Mean [Right Arm] Blood Pressure Source [Right Arm] Blood Pressure Position Sitting Blood Pressure Position [Right Arm] 02 Sat by Pulse Oximetry 97 Oxygen Delivery Method Room Air Room Air Lab Data Lab Results 10/24/24 17:55: WBC 9.3, RBC 5.10, Hgb 15.2, Hct 46.1, MCV 90.4, MCH 29.8, MCHC 33.0, RDW 13.9, Plt Count 245, MPV 9.8, Neut % (Auto) 71.6, Lymph % (Auto) 15.0, [place] % (Auto) 11.7 H, Eos % (Auto) 1.0, Baso % (Auto) 0.5, Neut # (Auto) 6.6, Lymph # (Auto) 1.4, [place] # (Auto) 1.1 H, Eos # (Auto) 0.1, Baso # (Auto) 0.1, ESR 16, Sodium 137, Potassium 4.6, Chloride 102, Carbon Dioxide 28, Anion Gap 11.6, BUN 35 H, Creatinine 1.80 H, Estimated Creat Clear 46, Estimated GFR 39 L, Est GFR ( Amer) 47 L, Glucose 148 H, Calcium 9.6, Total Bilirubin 1.7 H, AST 31, ALT 23, Alkaline Phosphatase 115, C-Reactive Protein 26.0 H, Total Protein 8.4 H, Albumin 4.4, Globulin 4.0 H, Albumin/Globulin Ratio 1.1 10/24/24 17:55 10/24/24 17:55 Orders (Tests/Meds): ED MEDICATIONS Discontinued Medications Generic Name Dose Route Start Last Admin Trade Name Wyatt PRN Reason Stop Dose Admin Hydrocodone Bitart/Acetaminophen 2 tab 10/24/24 17:26 10/24/24 17:46 Hydrocodone/Apap 5/325 Mg Tablet PO 10/24/24 17:27 2 tab ONCE ONE Administration Amoxicillin/Clavulanate Potassium 1 each 10/24/24 20:18 10/24/24 20:25 Amoxicillin/Clavulanate Potassium 875/125mg Tablet PO 10/24/24 20:19 1 each ONCE ONE Administration Sodium Chloride 1,000 mls @ 999 mls/hr 10/24/24 18:48 10/24/24 19:07 Sod Chlor 0.9% 1000ml Bag IV 10/24/24 19:48 Not Given .Q1H1M ONE Iopamidol 80 ml 10/24/24 18:55 10/24/24 18:59 Iopamidol-370 (76%);100ml Bottle IV 10/24/24 18:56 80 ml ONCE ONE Administration Ondansetron HCl 4 mg 10/24/24 17:27 10/24/24 17:46 Ondansetron 4mg Odt SL 10/24/24 17:28 4 mg ONCE ONE Administration Sodium Chloride 10 ml 10/24/24 18:55 10/24/24 18:59 Sodium Chloride 0.9% 10ml Syr (Rad Only) IV 10/24/24 18:56 10 ml ONCE ONE Administration Sodium Chloride 500 ml 10/24/24 19:07 10/24/24 19:08 Sodium Chloride 0.9% 500ml Bag IV 10/24/24 19:08 500 ml ONCE ONE Administration ORDERS Category Date Time Status CT facial bones w con Stat Cat Scan 10/24/24 17:25 Completed CBC w/Auto Diff [Complete Blood Count Auto Diff] Stat Lab 10/24/24 17:55 Completed CRP [C-Reactive Protein] Stat Lab 10/24/24 17:55 Completed Comprehensive Metabolic Panel Stat Lab 10/24/24 17:55 Completed Erythrocyte Sedimentation Rate Stat Lab 10/24/24 17:55 Completed Medical Decision Narrative: patient is a 89-year-old male presenting to the emergency department for evaluation of right side of his face swollen with dental pain started yesterday. Patient is hemodynamically stable and nontoxic-appearing upon arrival, afebrile. Differential diagnosis includes. Workup will be conducted with hematologic labs, specific imaging. Initial inventions include analgesics. Initial workup reviewed by me [hematologic labs are remarkable for normal white count at 9.3.. Imaging informally interpreted by me and remarkable for nothing acute. Formal imaging read remarkable for nothing acute. Upon repeat evaluation patient's pain is improved. Discussed with patient and that he is to follow-up with PCP and a dentist. They assured me that they will follow- up with a dentist. He will be discharged with Augmentin. Safe for discharge home Critical Care Critical Care Time Critical Care Time: No
--- NOTE | 2024-10-24 17:25 | CT_ITS ---
PROCEDURE INFORMATION: Exam: CT Maxillofacial With Contrast Exam date and time: 10/24/2024 6:54 PM Age: 59 years old Clinical indication: Face pain; Additional info: Facial swelling TECHNIQUE: Imaging protocol: Computed tomography of the face with contrast. Radiation optimization: All CT scans at this facility use at least one of these dose optimization techniques: automated exposure control; mA and/or kV adjustment per patient size (includes targeted exams where dose is matched to clinical indication); or iterative reconstruction. Contrast material: ISOVUE; Contrast volume: 80 ml; Contrast route: IV; COMPARISON: US CA CAROTID DUPLEX BI 03/20/2024 10:47 AM FINDINGS: Paranasal sinuses: No air-fluid levels. Orbital cavities: Orbits are normal. Globes are unremarkable. Bones: No acute fracture. Soft tissues: Right periorbital subcutaneous hyperattenuating opacities compatible with small hematoma/contusion. IMPRESSION: No acute findings.
[2024-10-24 17:26] VITALS: BP 168/86; PULSE 102; RESP 18; TEMP 36.8; O2SAT 98
[2024-10-24] MEDS: ONDANSETRON 4MG ODT 4 MG SL (17:46)
[2024-10-24] MEDS: HYDROCODONE/APAP 5/325 MG TABLET 2 TAB PO (17:46)
[2024-10-24 18:10] LABS: Hematocrit 46.1 % (42.0-52.0); Hemoglobin 15.2 g/dL (14.1-18.0); Immature Granulocytes % 0.2 %; Mean Corpuscular HGB Conc 33.0 g/dL (31.8-35.4); Mean Corpuscular Hemoglobin 29.8 pg (27.0-31.2); Mean Corpuscular Volume 90.4 fl (80-94); Nucleated Red Blood Cells % 0 %; Platelet Count 245 K/mm3 (142-424); Red Blood Count 5.10 M/mm3 (4.60-6.20); Red Cell Distribution Width-SD 46.5 fL; White Blood Count 9.3 K/mm3 (4.8-10.8)
[2024-10-24 18:16] LABS: Albumin Level 4.4 g/dl (3.5-5.0); Chloride 102 mmol/L (98-107); Sodium 137 mmol/L (136-145)
[2024-10-24 18:17] LABS: Potassium 4.6 mmoL/L (3.5-5.1)
[2024-10-24 18:19] LABS: Alanine Aminotransferase 23 U/L (12-78); Albumin/Globulin Ratio 1.1 (1.1-1.8); Alkaline Phosphatase 115 U/L (38-126); Anion Gap 11.6 mEq/L (5-15); Aspartate Amino Transferase 31 U/L (17-59); Bilirubin,Total 1.7 mg/dl (0.2-1.3); Blood Urea Nitrogen 35 mg/dl (9-20); Carbon Dioxide 28 mmol/L (22.0-30.0); Creatinine Clearance Estimated 46 mL/min (50-200); Creatinine,Serum 1.80 mg/dl (0.66-1.25); Estimated Glomerular Filt Rate 39 ml/min (>60); GFR (African American) 47 ML/MIN (>60); Globulin 4.0 g/dL (1.3-3.2); Total Protein,Serum 8.4 g/dl (6.3-8.2)
[2024-10-24 18:20] LABS: Calcium 9.6 mg/dl (8.4-10.2); Glucose 148 mg/dl (74-100)
[2024-10-24 18:25] LABS: C-Reactive Protein 26.0 mg/L (0-4)
[2024-10-24] MEDS: IOPAMIDOL-370 (76%);100ML BOTTLE 80 ML IV (18:59)
[2024-10-24] MEDS: SODIUM CHLORIDE 0.9% 10ML SYR (RAD ONLY) 10 ML IV (18:59)
[2024-10-24] MEDS: SODIUM CHLORIDE 0.9% 500ML BAG 500 ML IV (19:08)
[2024-10-24 19:12] VITALS: BP 136/86; PULSE 88; O2SAT 98
--- NOTE | 2024-10-24 19:12 | PC.NURSE ---
Report given to Tawnya Cortes RN
[2024-10-24 19:30] VITALS: BP 172/100; PULSE 86; O2SAT 97
[2024-10-24] MEDS: AMOXICILLIN/CLAVULANATE POTASSIUM 875/125MG TABLET 1 EACH PO (20:25)
--- NOTE | 2024-10-24 20:35 | PC.NURSE ---
CT contacted regarding the delay in CT reads,.
[2024-10-24 21:12] VITALS: BP 148/74; PULSE 80; RESP 16; TEMP 37.2; O2SAT 96
== END 2024-10-24 21:13 | disposition home or self-care (01) ==
PROVIDERS: Nurse Practitioner; Emergency Provider Student in an Organized Health Care Education/Training Program
DX: R22.0 Localized swelling, mass and lump, head (principal); K03.1 Abrasion of teeth; I10 Essential (primary) hypertension
CPT/HCPCS: 70487; 80053; 85025; 85651; 86140; 99285; J7040; Q0162; Q9967

== ENCOUNTER → 2024-11-28 06:45 | Outpatient (CLI) | payer OTHER, SELFPAY ==
--- OUTSIDE RECORDS SUMMARY | 2024-10-11 06:45 | XMS_ITS ---
[facility] [address] [facility] [address] [place] [id number] Care Team Providers Care Test Engineering Technician Name Role Phone Brendan Greer Unavailable [phone] Allergies Allergen (clinical drug ingredient) Drug/Non Drug [...] day; Duration: 14 day(s) Active Vital Signs Weight 468.4 lbs 10/11/2024 Blood pressure systolic 140 mm Hg 10/12/19 25 Blood pressure diastolic 70 mm Hg 025 Heart Rate 101 /min 10/11/2024 Height 70.5 in 10/11/2024 BMI 66.25 kg/m2 10/11/2024 Encounters Encounter Location Date Provider Diagnosis [place] [address] [address] [place], [place] [phone] 10/11/2024 Brendan Greer Diabetic polyneuropa thy associated with type 2 diabetes mellitus E11.42 ; HBP (high blood pressure) I10 ; Knee pain M25.569 ; Morbid obesity E66.01 and assistant terminal manager (current) use of anticoagulants Z79.01 Assessments Encounter [...] see if any GLP-1's are covered 10/11/2024 assistant terminal manager (current) use of anticoagulants (ICD-10 - Z79.01) [...] Up: 4 Weeks, Reason: Provider Name:Brendan Martinez, 12/20/2024 09:00:00 AM, [address], [place], [place], [id number], Progress Notes * LONNIE DIAZDOB:1965 (59 yo M)Acc No.[id number]:10/11/2024 Progress Notes Patient: LONNIE DODD Provider: Brendan Greer M.D. :1965 A ge:59 Y S ex:Male Date:10/11/2024 Address:[address] [place] [address] Subjective: * Chief Complaints: * 1 . [...] Procedure: H MH - Blood Clots 03/30/2023, [facility] ER - Diarrhea 06/29/2023, [facility] - Diarrhea 07/05/2023. * Family History: [...] 8 5610 PROTHROMBIN TIME, Modifiers: QW , [address] CAPILLARY BLOOD DRAW, 1036F TOBACCO NON-USER, 3077F SYST BP = 140 MM HG6 IT, 3078F DIAST BP < 80 MM HG * Follow Up: 4 Weeks * Images: Billing Information: * Visit Code: 78266 Office Visit, Est Pt., Level 3. * Procedure Codes: 12154 PROTHROMBIN TIME. Modifiers: QW 30509 CAPILLARY BLOOD DRAW. 1036F TOBACCO NON-USER. 3077F SYST BP = 140 MM HG6 IT. 3078F DIAST BP < 80 MM HG. * Electronic signature of Brendan Greer MD on 11/28/2024 at 06:48 AM EDT Sign off status: Pending * Provider: Brendan Greer M.D. Date: 0 10/11/2024 Generated for Shelli newell/Gregory/Irinaitting on: 0 11/28/2024 06:48 AM EDT History and Physical Notes * HPI [...]
--- OUTSIDE RECORDS SUMMARY | 2024-11-20 06:30 | XMS_ITS ---
[facility] Organization [facility] Address [address] [facility] [address] [facility] [address] [place] [id number] Care Team Providers Care Domestic Violence Counselor Name Role Phone Brendan Greer Unavailable [phone] Allergies Allergen (clinical drug ingredient) Drug/Non Drug Allergy documented on EMR Reaction Allergy Type Onset Date Status codeine Codeine hives Drug Allergy Active Results Component Value Reference Range Notes PT/INR (in house) Reviewed date:11/21/2024 02:26:54 PM Interpretation: Performing Lab: Notes/Report: PT 39.0 INR 3.3 current dose 2.5mg TU,5mg AOD new dose 2.5mg Tu,F; 5mg AOD next check 1 month ideal INR 2-3 REASON FOR VISIT 4 weeks Medications Medication SIG (Take, Route, Frequency, Duration) Notes Start Date End Date Status Gabapentin 400 MG 1 cap(s) orally 2 ti mes a day 10/11/2024 Active Chlorthalidone 25 MG 1/2 tab(s) orally o nce a day; Duration: 90 days Active Warfarin Sodium 5 MG Take 1 tablet by [facility] once daily; Duration: 90 Active Lisinopril 10 MG 1 tablet Orally once a day Active Amitriptyline HCl 25 MG 1 tab(s) orally once a day (at bedtime); Duration: 90 days Active Metoclopramide HCl 5 MG 1 tablet before meals Orally Twice a day 05/31/2024 Active Omeprazole Magnesium 20 MG 1 tab(s) oral ly once a day; Duration: 14 day(s) Active Mounjaro 2.5 MG/0.5ML 2.5 mg Subcutaneou s once a week 11/20/2024 Active Diphenoxylate-Atropine 2.5-0.025 MG 1 tab(s) Orally four times a day as needed 06/30/2023 Active metFORMIN HCl 1000 MG 1 tab(s) orally Tw o times a day Active Meloxicam 15 MG 1 tab(s) Orally once daily Active Glimepiride 2 MG 1 tablet with breakf ast or the first main meal of the day Orally Once a day Active Problems Problem Type SNOMED Code ICD Code Onset Dates Problem Status W/U Status Risk Notes Problem ERASTO (obstructive sleep apnea) (G47.33) Active confirmed Vital Signs Weight 471 lbs 11/20/2024 Blood pressure systolic 130 mm Hg 11/21/19 25 Blood pressure diastolic 80 mm Hg 025 Heart Rate 85 /min 11/20/2024 Height 70.5 in 11/20/2024 BMI 66.62 kg/m2 11/20/2024 Encounters Encounter Location Date Provider Diagnosis [facility] [address] [facility] [address] [place] [address], [place] [id number] 11/20/2024 Brendan Greer Hx of pulmonary embo jose alberto Z86.711 ; [facility] (current) use of anticoagulants Z79.01 ; Type 2 diabetes mellitus with diabetic autonomic (poly)neuropathy E11.43 ; Multiple joint pain M25.50 and ERASTO (obstructive sleep apnea) G47.33 Assessments Encounter Date Diagnosis (ICD Code) Assessment Notes Treatment Notes Treatment Clinical Notes Section Notes 11/20/2024 Hx of pulmonary embolus (ICD-10 - Z86.711) 11/20/2024 [facility] (current) use of anticoagulants (ICD-10 - Z79.01) 11/20/2024 Type 2 diabetes mellitus with diabetic autonomic (poly)neuropathy (ICD-10 - E11.43) 11/20/2024 Multiple joint pain (ICD-10 - M25.50) 11/20/2024 ERASTO (obstructive sleep apnea) (ICD-10 - G47.33) Plan Of Treatment Medication Medication Name Sig Start Date Stop Date Notes Mounjaro 2.5 MG/0.5ML 2.5 mg Subcutaneous once a week 11/02 metFORMIN HCl 1000 MG 1 tab(s) orally Two times a day Meloxicam 15 MG 1 tab(s) Orally once daily Glimepiride 2 MG 1 tablet with breakf ast or the first main meal of the day Orally Once a day Next Appt Details Follow Up: 4 Weeks, Reason: Provider Name:Brendan Breaux et, 12/20/2024 09:00:00 AM, [address] [facility] [address], [place], [id number], Progress Notes * LONNIE DIAZDOB:1965 (59 yo M)Acc No.[id number]:11/20/2024 Progress Notes Patient: LONNIE DODD Provider: Brendan Greer M.D. :1965 A ge:59 Y S ex:Male Date:11/20/2024 Address:[address] [place] [address], [facility] Subjective: * Chief Complaints: * 1 . 4 weeks. * HPI: H ematology: 59 year old male presents with c/o PT/INR d ue for PT/INR.? E NT/respiratory: He is planning to have oral surgery in the near future and will need Lovenox bridge. He does not yet have a date for the surgery. E ndocrinology: He thinks his insurance will now cover a GLP-1 injectable medication and would like to try. * ROS: D ERMATOLOGY: no R yanira. [...] Procedure: H [facility] - Blood Clots 03/30/2023, [facility] - Diarrhea 06/29/2023, [facility] ER - Diarrhea 07/05/2023. * Family History: F ather: , diagnosed with Hypertension, Heart Disease. M other: , diagnosed with Diabetes. Mother from renal failure Older brother with diabetes Younger brother with MO. * Social History: C URRENT TOBACCO USE: [...] day Orally Once a day , Taking Amitriptyline HCl 25 MG Tablet 1 tab(s) orally once a day (at bedtime) , Taking Meloxicam 15 MG Tablet 1 tab(s) Orally once daily , Taking Metoclopramide HCl 5 MG Tablet 1 tablet before meals Orally Twice a day , Taking metFORMIN HCl 1000 MG Tablet 1 tab(s) orally Two times a day , Taking Chlorthalidone 25 MG Tablet 1/2 tab(s) orally once a day , Taking Gabapentin 400 MG Capsule 1 cap(s) orally 2 times a day , Taking Lisinopril 10 MG Tablet 1 tablet Orally once a day , Taking Warfarin Sodium 5 MG Tablet Take 1 tablet by mouth once daily , Discontinued Zithromax Z-Dung 250 MG Tablet as directed Orally , Medication List reviewed and reconciled with the patient * Allergies: C odeine: hives. Objective: * Vitals: W t: 471, Temp: 000, BP: 130/80, HR: 85, Nurse: pe, Ht: 70.5, BMI:66.62. Assessment: * Assessment: 1. H x of pulmonary embolus - Z86.711 (Primary) 2 . L tracee term (current) use of anticoagulants - Z79.01 3 . T ype 2 diabetes mellitus with diabetic autonomic (poly)neuropathy - E11.43 4 . M ultiple joint pain - M25.50 5 . O SA (obstructive sleep apnea) - G47.33 Plan: * Treatment: 2. M ultiple joint pain Refill Meloxicam Tablet, 15 MG, 1 tab(s), Orally, once daily, 90, Refills 1. 3. O thers Refill metFORMIN HCl Tablet, 1000 MG, 1 tab(s), orally, Two times a day, 180, Refills 1. * Labs: * L ab: PT/INR (in house) (Collection Date & Time - 11/20/2024) Value Reference Range P T 39.0 * I NR 3.3 * c urrent dose 2.5mg TU,5mg AOD * n ew dose 2.5mg Tu,F; 5mg AOD * n ext check 1 month * i deal INR 2-3 * Casandra Mejia 11/20/2024 1 0:35:17 AM EDT > Provider reviewed results while patient in office. * Procedure Codes: 8 5610 PROTHROMBIN TIME, Modifiers: QW , 18673 CAPILLARY BLOOD DRAW * Follow Up: 4 Weeks * Images: Billing Information: * Visit Code: 48930 Office Visit, Est Pt., Level 3. * Procedure Codes: 73298 PROTHROMBIN TIME. Modifiers: QW 54869 CAPILLARY BLOOD DRAW. * Electronic signature of Brendan Greer MD on 11/28/2024 at 06:48 AM EDT Sign off status: Pending * Provider: Brendan Greer M.D. Date: 0 11/20/2024 Generated for Printi ng/Fainnag/eTransmitting on: 0 11/28/2024 06:48 AM EDT History and Physical Notes * HPI (History of Present Illness) Category Sub-Category Detail Notes Category Not es Hematology PT/INR due for PT/INR
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
== END ==
LOC: SL 06:46
PROVIDERS: PCP Family Medicine; Visit Provider Family Medicine
DX: G47.33 Obstructive sleep apnea (adult) (pediatric) (principal); G47.36 Sleep related hypoventilation in conditions classified elsewhere; R53.83 Other fatigue
CPT/HCPCS: G0399

== ENCOUNTER 2025-03-20 10:21 | Emergency (ER) | payer OTHER, SELFPAY ==
[2025-03-20 10:29] VITALS: BP 157/80; PULSE 109; RESP 20; TEMP 36.9; O2SAT 96; BMI 61.0
--- NOTE | 2025-03-20 10:36 | ED_ITS ---
<Statement entered by Lazaro Clifton MD - 03/20/25 13:38> Lazaro Clifton MD: I was consulted by the NAHOMI, and we discussed the complexity of the problems being addressed. I approve the treatment and management plan for this patient's care in the emergency department, thus performing a substantive portion of the medical decision making. Discharge Plan Disposition Patient Disposition: Home, Self-Care Condition: Good Prescriptions Prescriptions: No Action metformin 1,000 mg tablet 1,000 mg PO BIDWMEAL amitriptyline 25 mg tablet 25 mg PO HS gabapentin 400 mg capsule 400 mg PO BID lisinopril 10 mg tablet 20 mg PO DAILY meloxicam 15 mg tablet 15 mg PO DAILY Patient Comments: TAKE 1 TABLET BY MOUTH ONCE DAILY chlorthalidone 25 mg Tablet 12.5 mg PO DAILY omeprazole 20 mg Tablet,Delayed Release (Dr/Ec) 20 mg PO DAILY Trulicity 1.5 mg/0.5 mL pen injector 1.5 mg SQ WEEKLY Eliquis DVT-PE Treat 30D Start 5 mg (74 tabs) tablets,dose pack 5 mg PO BID Qty: 74 0RF ondansetron HCl 4 mg tablet 4 mg PO Q8H PRN (Reason: nausea and vomiting) Qty: 15 0RF nitazoxanide 500 mg tablet 500 mg PO BID 3 Days Qty: 6 0RF Rx Instructions: must administer with a meal/food amoxicillin-pot clavulanate 875-125 mg tablet 1 tab PO BID Qty: 20 0RF Referrals Follow up/Referrals: Michael Greer MD [Primary Care Provider, Medical] - See instructions Activity Restrictions/Add. Instructions Additional Instructions/Restrictions: You were evaluated on an emergency basis. It is very important that you follow- up with your primary care provider and any specialist who we discussed within the next 2 days in order to better assess your health more comprehensively. For example, incidental findings on imaging or laboratory results that were performed today may be discovered, which do not require immediate medical care, but may impact your health in the future. If your symptoms worsen or persist, please return to the emergency department immediately for reassessment. Take all medications as prescribed. In queue for allowing me to participate in your health care, and I hope you feel better soon. Clinical Impressions Clinical Impression: Bleeding post tooth extraction Instructions Patient Instructions: DI for Post-Surgical Bleeding Print Language Print Language: Kyrgyz Discharge ED Provider: Lazaro Clifton General Adult HPI General Chief complaint: Dental/Oral Stated complaint: post op 03/19, oral bleeding Time Seen by Provider: 03/20/25 10:36 Mode of Arrival: Ambulatory Source of Information: Patient Description of Symptoms (Recalled from ER Triage Doc. by RN): pt had teeth removed yesterday about 1530 at [facility]. was on coumadin but has held it for 5 days, now currently on lovenox. he said shortly after leaving the office he started bleeding and is unable to get it to stop. History of Present Illness HPI narrative: 60-year-old male presents emergency department with complaints of bleeding after dental procedure. Patient reports he had multiple teeth extracted yesterday in preparation for dentures. He reports that he was on Coumadin however 5 days ago they switched him to Lovenox in preparation for this procedure. Patient states he has had bleeding since his extractions. Patient was instructed to come to the emergency department by his oral surgeon for evaluation. Related Data Home Medications ?Medication ?Instructions ?Recorded ?Confirmed amitriptyline 25 mg tablet 25 mg PO HS MOOD 01/26/22 0 09/20/24 gabapentin 400 mg capsule 400 mg PO BID Pain 01/26/22 09/20/24 lisinopril 10 mg tablet 20 mg PO DAILY Hypertension 01/26/22 09/20/24 metformin 1,000 mg tablet 1,000 mg PO BIDWMEAL Diabete s 01/26/22 09/20/24 chlorthalidone 25 mg tablet 12.5 mg PO DAILY Fluid 09/20/24 dulaglutide 1.5 mg/0.5 mL 1.5 mg SQ WEEKLY Diabetes 09/20/24 subcutaneous pen injector (Trulicity) meloxicam 15 mg tablet 15 mg PO DAILY Pain 03/25/23 09/20/24 omeprazole 20 mg tablet,delayed 20 mg PO DAILY Acid Re flux 03/25/23 09/20/24 release Previous Rx's ?Medication ?Instructions ?Recorded apixaban 5 mg (74 tabs) tablets in 5 mg PO BID #74 tab s 03/26/23 a dose pack (Eliquis DVT-PE Treat 30D Start) ondansetron HCl 4 mg tablet 4 mg PO Q8H PRN nausea and 03/27/23 vomiting #15 tabs nitazoxanide 500 mg tablet 500 mg PO BID 3 days #6 tab s 07/05/23 amoxicillin 875 mg-potassium 1 tab PO BID #20 tabs clavulanate 125 mg tablet Allergies Allergy/AdvReac Type Severity Reaction Status Date / Time codeine Allergy Verified 09/20/24 11:13 [facility] Disclaimer: The information contained in this section may have been updated after the patient was seen, as this information can be updated by other users. Medical History GERD (gastroesophageal reflux disease) Morbid obesity Neuropathy Gastroparesis Hypertension Diabetes mellitus, type 2 Surgical History History of cholecystectomy Family History Other Family history of diabetes mellitus type II Social History Smoking Status: Never smoker alcohol intake: never current occupational status: other Travel in the last 8 weeks?: None Have you lived/traveled outside [place] in past 30 days?: No Contact w/someone who lives/traveled outside [place] past 30 days?: No Exposure to someone with infectious disease in past 14 days?: No Do you have a fever (greater than 100.4 F or 38 C)?: No Have you tested positive for COVID-19?: No Exposed to someone with COVID-19 in past 14 days?: No Do you have a sore throat?: No Do you have a cough?: No Do you have any weakness?: No Do you have any diarrhea?: No Are you experiencing any unusual bleeding?: Yes Do you have any muscle aches/pain?: No Do you have any abdominal pain?: No Are you experiencing loss of taste or smell?: No Other Medical History Have you received the Flu Vaccine for this season: No Have you received the Pneumonia Vaccine: No ROS Obtained: Yes other ENT Ears, Nose, Mouth, and Throat: Reports other (Bleeding from recent dental extraction sites) Physical Exam Narrative Physical exam: General: Awake, aware, in no acute distress HEENT: Bleeding noted from multiple dental extraction sites on the patient's bilateral lower quadrants of mouth as well as his left upper quadrant. Patient managing secretions without difficulty. He is able to speak in clear complete sentences. CV: RRR, no murmurs, rubs, or gallops Pulm: CTA bilaterally with no rhonchi, rales, wheezes ABD: Nontender, no swelling, guarding, or rebound tenderness Psych, appropriate mood and affect General General appearance: alert Respiratory Respiratory exam: Present normal lung sounds bilaterally Cardiovascular Cardiovascular exam: Present regular rate Neurological Exam Neurological exam: Present alert Medical Decision Making Medical Records Screening: Per USPSTF and CDC recommendations, given the prevalence of disease in our region, it is our hospital?s policy to screen for HIV and viral Hepatitis for all patients aged 18 and over and those with ongoing risk factors. Alex Inquiry Pt receiving controlled substance: No Vital Signs: 03/20/25 10:29 03/20/25 11:38 Temperature 98.4 F Temperature Source Axillary Pulse Rate 98 H Pulse Rate [Left] 109 H Respiratory Rate 20 Blood Pressure 141/73 H Blood Pressure [Left Arm] 157/80 H Blood Pressure Mean [Left Arm] 105 02 Sat by Pulse Oximetry 96 99 Oxygen Delivery Method Room Air Room Air Lab Data Lab Results 03/20/25 10:54: WBC 7.3, RBC 5.05, Hgb 14.8, Hct 45.2, MCV 89.5, MCH 29.3, MCHC 32.7, RDW 13.4, Plt Count 208, MPV 10.0, Neut % (Auto) 69.1, Lymph % (Auto) 15.0, [place] % (Auto) 14.4 H, Eos % (Auto) 0.4, Baso % (Auto) 0.7, Neut # (Auto) 5.0, Lymph # (Auto) 1.1, [place] # (Auto) 1.1 H, Eos # (Auto) 0.0, Baso # (Auto) 0.1, PT 11.9, INR 1.08, APTT 29.1, Sodium 135 L, Potassium 4.1, Chloride 108 H, Carbon Dioxide 23, Anion Gap 8.1, BUN 32 H, Creatinine 2.20 H, Estimated Creat Clear 37, Estimated GFR 31 L, Est GFR ( Amer) 37 L, Glucose 144 H, Calcium 8.8, Total Bilirubin 1.7 H, AST 34, ALT 32, Alkaline Phosphatase 79, Total Protein 7.6, Albumin 4.2, Globulin 3.4 H, Albumin/Globulin Ratio 1.2 03/20/25 10:54 03/20/25 10:54 Orders (Tests/Meds): ED MEDICATIONS Generic Name Dose Route Start Last Admin Trade Name Wyatt PRN Reason Stop Dose Admin Sodium Chloride 10 ml 03/20/25 10:42 Sodium Chloride 0.9% 10ml Flush Syringe IV 04/19/25 10:41 NEEDED PRN Maintain IV Site Discontinued Medications Generic Name Dose Route Start Last Admin Trade Name Freq PRN Reason Stop Dose Admin Hydrocodone Bitart/Acetaminophen 1 tab 03/20/25 11:56 03/20/25 12:12 Hydrocodone/Apap 5/325 Mg Tablet PO 03/20/25 11:57 1 tab ONCE ONE Administration Tranexamic Acid 1,000 mg 03/20/25 10:45 03/20/25 11:10 Tranexamic Acid 1,000 Mg/10 Ml Vial TP 03/20/25 10:46 1,000 mg ONCE ONE Administration ORDERS Category Date Time Status CBC w/Auto Diff [Complete Blood Count Auto Diff] Stat Lab 03/20/25 10:54 Completed CMP [Comprehensive Metabolic Panel] Stat Lab 03/20/25 10:54 Completed HIV Combo Stat Lab 03/20/25 10:54 Received Hepatitis C Ab Qual. W/ RFX Stat Lab 03/20/25 10:54 Received PT/PTT Stat Lab 03/20/25 10:54 Completed Medical Decision Narrative: Initial impression of presenting illness: 60-year-old male presents emergency department with complaints of bleeding after dental extractions yesterday. He reports that he was on Coumadin however for 5 days ago they switched him to Lovenox in preparation for this procedure. He states that he was instructed to come to the emergency department for evaluation by his oral surgeon. Differential diagnosis includes but is not limited to: Postoperative bleeding, supratherapeutic INR Patient arrives hemodynamically stable, afebrile, without respiratory distress with vital signs interpreted by myself. Initial physical exam reveals bleeding from multiple extraction sites within patient's mouth including bilateral lower quadrants of mouth as well as left upper quadrant. Rest of exam is unremarkable. Patient is speaking in clear complete sentences and is managing secretions without difficulty. Initial diagnostic plan: Laboratory studies, topical TXA Results from initial plan were reviewed and interpreted by myself, pertinent positives include: Laboratory studies were nonactionable. Interventions in the ED: Patient was given a topical TXA for bleeding control. He was also given [place] for pain control. Patient was made aware of the results and the findings, upon reevaluation patient has remained stable throughout stay, symptoms have improved. Upon reevaluation bleeding appears controlled at this time. Patient still managing secretions without difficulty and speaking in clear sentences. Disposition: Reviewed finding today's workup with patient informed no acute abnormalities were noted. Recommended patient take all previously prescribed medications by his oral surgeon. I recommended that he consume a soft diet for the next few days to avoid irritating the area and getting a bleeding again. Advised him if bleeding does start to hold direct pressure by biting on gauze for 15 to 20 minutes and if bleeding is still continued to contact his oral surgeon or return to the emergency department for recommendations and treatment. Patient was agreeable to plan of care. Patient made aware of findings and had a detailed discussion with symptomatic care and return precautions, patient voiced understanding. Critical Care Critical Care Time Critical Care Time: No
[2025-03-20 11:05] LABS: Hematocrit 45.2 % (42.0-52.0); Hemoglobin 14.8 g/dL (14.1-18.0); Immature Granulocytes % 0.4 %; Mean Corpuscular HGB Conc 32.7 g/dL (31.8-35.4); Mean Corpuscular Hemoglobin 29.3 pg (27.0-31.2); Mean Corpuscular Volume 89.5 fl (80-94); Nucleated Red Blood Cells % 0 %; Platelet Count 208 K/mm3 (142-424); Red Blood Count 5.05 M/mm3 (4.60-6.20); Red Cell Distribution Width-SD 43.8 fL; White Blood Count 7.3 K/mm3 (4.8-10.8)
[2025-03-20] MEDS: TRANEXAMIC ACID 1,000 MG/10 ML VIAL 1000 MG TP (11:10)
[2025-03-20 11:14] LABS: Albumin Level 4.2 g/dl (3.5-5.0); Chloride 108 mmol/L (98-107); Potassium 4.1 mmoL/L (3.5-5.1); Sodium 135 mmol/L (136-145)
[2025-03-20 11:15] LABS: Activated Partial Thrombo Time 29.1 seconds (22.8-30.6); INR 1.08 (0.9-1.1); Prothrombin Time 11.9 seconds (10.1-12.5)
[2025-03-20 11:17] LABS: Alanine Aminotransferase 32 U/L (12-78); Albumin/Globulin Ratio 1.2 (1.1-1.8); Alkaline Phosphatase 79 U/L (38-126); Anion Gap 8.1 mEq/L (5-15); Aspartate Amino Transferase 34 U/L (17-59); Bilirubin,Total 1.7 mg/dl (0.2-1.3); Blood Urea Nitrogen 32 mg/dl (9-20); Carbon Dioxide 23 mmol/L (22.0-30.0); Creatinine Clearance Estimated 37 mL/min (50-200); Creatinine,Serum 2.20 mg/dl (0.66-1.25); Estimated Glomerular Filt Rate 31 ml/min (>60); GFR (African American) 37 ML/MIN (>60); Globulin 3.4 g/dL (1.3-3.2); Total Protein,Serum 7.6 g/dl (6.3-8.2)
[2025-03-20 11:18] LABS: Calcium 8.8 mg/dl (8.4-10.2); Glucose 144 mg/dl (74-100)
[2025-03-20 11:38] VITALS: BP 141/73; PULSE 98; O2SAT 99
[2025-03-20] MEDS: HYDROCODONE/APAP 5/325 MG TABLET 1 TAB PO (12:12)
[2025-03-20 12:36] VITALS: BP 141/73; PULSE 93; RESP 16; TEMP 36.8; O2SAT 94
[2025-03-20 13:22] LABS: Hepatitis C Ab Qual. W/ RFX NEGATIVE (Negative)
== END 2025-03-20 12:39 | disposition home or self-care (01) ==
PROVIDERS: Nurse Practitioner Family; Emergency Provider Student in an Organized Health Care Education/Training Program; PCP Family Medicine
DX: K91.840 Postprocedural hemorrhage of a digestive system organ or structure following a digestive system procedure (principal); Z79.01 Long term (current) use of anticoagulants; Z86.718 Personal history of other venous thrombosis and embolism
CPT/HCPCS: 80053; 85025; 85610; 85730; 86803; 87389; 99283